=== PATIENT | male | born 1960 | race Caucasian/White ===

== ENCOUNTER 2021-12-16 09:10 | Inpatient (IN) | payer OTHER, SELFPAY ==
[2021-12-16 09:48] LABS: #Basophils 0.1 10x3/uL (0.0-0.2); #Monocytes 0.5 10x3/uL (0.0-1.1); #Neutrophils 3.6 10x3/uL (1.5-8.4); %Basophils 1.2 % (0.0-2.0); %Eosinophils 0.6 % (0.0-6.0); %Lymphocytes 13.7 % (18.0-47.0); %Monocytes 9.5 % (0.0-10.0); %Neutrophils 74.6 % (40.0-75.0); Hemoglobin 8.5 g/dL (13.5-17.5); Mean Corpuscular HGB CONC 34.3 g/dL (32.0-36.0); Mean Corpuscular Hemoglobin 30.4 pg (27.0-33.0); Mean Corpuscular Volume 88.6 fl (81.2-95.1); Mean Platelet Volume 8.4 fl (7.4-10.4); Platelet Count 136 10x3/uL (150-450); RBC Distribution Width 15.9 % (11.5-14.5); White Blood Cell (WBC) Count 4.8 10x3/uL (3.5-10.5)
[2021-12-16 09:59] LABS: PTT 27.4 sec (22.0-33.0); Prothrombin Time 10.9 sec (9.5-12.1)
[2021-12-16 10:04] LABS: Acetaminophen Less than 10.0 mcg/mL (10.0-30.0); Alcohol Less than 10 mg/dL (Less than 10); Salicylate Less than 8.0 mg/dL (15.0-30.0)
[2021-12-16 10:05] LABS: ALT (SGPT) 10 U/L (8-55); AST (SGOT) 22 U/L (5-34); Albumin 2.9 g/dL (3.5-5.0); Alkaline Phosphatase 102 U/L (40-110); Anion Gap 15 mmol/L (10-20); BUN (Urea Nitrogen) 27 mg/dL (8.4-25.7); Bilirubin, Total 1.5 mg/dL (0.2-1.2); CK (CPK) 14 U/L (30-200); Calc. Creatinine Clearance 0 mL/min (70-130); Calcium 8.7 mg/dL (7.8-10.44); Carbon Dioxide 26 mmol/L (22-29); Chloride 94 mmol/L (98-107); Globulin 3.9 g/dL (2.4-3.5); Glucose 127 mg/dL (70-105); Lipase 57 U/L (8-78); Potassium 3.9 mmol/L (3.5-5.1); Protein, Total 6.8 g/dL (6.0-8.3); Sodium 131 mmol/L (136-145)
[2021-12-16 11:24] LABS: Bilirubin Neg (Negative); Blood, Urine 10 (Negative); Clarity Clear (Clear); Glucose, Urine (Dipstick) Normal (Negative); Ketone, Urine Negative (Negative); Leukocyte Negative (Negative); Nitrite Negative (Negative); Protein, Urine (Dipstick) Negative (Neg-Trace)
[2021-12-16 11:31] LABS: Amphetamine Not Detected (NotDetected); Barbiturates Screen Not Detected (NotDetected); Benzodiazepine Screen Detected (NotDetected); Cocaine Metabolite Screen Not Detected (NotDetected); Methadone Not Detected (NotDetected); Methamphetamine Not Detected (NotDetected); Opiate Screen Not Detected (NotDetected); Oxycodone Screen Not Detected (NotDetected); Phencyclidine (PCP) Not Detected (NotDetected); THC/Cannabinoid Screen Not Detected (NotDetected); Tricyclic Screen Not Detected (NotDetected)
[2021-12-16 11:32] LABS: Bacteria/HPF Rare-Few HPF (None Seen); RBC/HPF 0-3 HPF (0-3); Renal Epithelial 0-3 HPF (None Seen); Transitional Epithelial 0-3 HPF (None Seen); WBC/HPF None Seen HPF (0-3)
[2021-12-16 12:26] LABS: Anion Gap 13 mmol/L (10-20); BUN (Urea Nitrogen) 27 mg/dL (8.4-25.7); Calc. Creatinine Clearance 0 mL/min (70-130); Calcium 8.4 mg/dL (7.8-10.44); Carbon Dioxide 26 mmol/L (22-29); Chloride 97 mmol/L (98-107); Glucose 125 mg/dL (70-105); Potassium 3.9 mmol/L (3.5-5.1); Sodium 132 mmol/L (136-145)
[2021-12-16] MEDS ORDERED: Ondansetron PF 4 MG/2 ML Vial IVP PRN (15:41)
[2021-12-16] MEDS ORDERED: Ondansetron ODT 4 MG TAB PO PRN ×2 (15:41→16:01)
[2021-12-16] MEDS ORDERED: Albumin 25% 25 GM/100 ML BOT IVPB SCH (15:45)
[2021-12-16] MEDS ORDERED: Thiamine 100 MG TAB PO SCH (15:45)
[2021-12-16] MEDS ORDERED: Lorazepam 1 MG TAB PO PRN (16:01)
[2021-12-16] MEDS ORDERED: Lorazepam 2 MG/ML VIAL IM PRN (16:01)
[2021-12-16] MEDS ORDERED: Electrolyte Replacement Protocol 1 EACH FS SCH (16:15)
[2021-12-16] MEDS ORDERED: Potassium Chloride 20 MEQ TAB PO SCH (18:00)
[2021-12-16] MEDS ORDERED: Multivit, Therapeutic 1 TAB PO SCH (18:00)
[2021-12-16] MEDS: Albumin 25% 25 GM/100 ML BOT IVPB SCH (20:00)
[2021-12-16] MEDS: Multivit, Therapeutic 1 TAB PO SCH (20:00)
[2021-12-16] MEDS: Thiamine HCl 200 MG/2 ML VIAL SLOW IVP SCH (20:01)
[2021-12-16] MEDS: Lorazepam 1 MG TAB PO SCH ×2 (20:02→22:00)
[2021-12-16 23:28] VITALS: BMI 23.6
[2021-12-17] MEDS: Albumin 25% 25 GM/100 ML BOT IVPB SCH ×2 (00:11→05:36)
[2021-12-17] MEDS: Lorazepam 1 MG TAB PO SCH ×3 (04:15→17:52)
[2021-12-17 05:31] LABS: #Eosinphils 0.1 10x3/uL (0.0-0.5); #Monocytes 0.4 10x3/uL (0.0-1.1); %Basophils 1.1 % (0.0-2.0); %Eosinophils 2.1 % (0.0-6.0); %Lymphocytes 20.8 % (18.0-47.0); Hemoglobin 7.8 g/dL (13.5-17.5); Mean Corpuscular HGB CONC 33.6 g/dL (32.0-36.0); Mean Corpuscular Hemoglobin 30.2 pg (27.0-33.0); Mean Corpuscular Volume 89.9 fl (81.2-95.1); Mean Platelet Volume 8.5 fl (7.4-10.4); Platelet Count 127 10x3/uL (150-450); Red Blood Cell (RBC) Count 2.58 10x6/uL (4.32-5.72); White Blood Cell (WBC) Count 3.8 10x3/uL (3.5-10.5)
[2021-12-17] MEDS: Levothyroxine Sodium 100 MCG TAB PO SCH (05:36)
[2021-12-17 05:46] LABS: #Neutrophils 2.3 10x3/uL (1.5-8.4); %Neutrophils 61.3 % (40.0-75.0)
[2021-12-17 05:52] LABS: Anion Gap 15 mmol/L (10-20); BUN (Urea Nitrogen) 23 mg/dL (8.4-25.7); Calc. Creatinine Clearance 49 mL/min (70-130); Carbon Dioxide 23 mmol/L (22-29); Chloride 99 mmol/L (98-107); Potassium 4.4 mmol/L (3.5-5.1); Sodium 133 mmol/L (136-145)
[2021-12-17 05:53] LABS: ALT (SGPT) 8 U/L (8-55); AST (SGOT) 17 U/L (5-34); Albumin 3.2 g/dL (3.5-5.0); Alkaline Phosphatase 89 U/L (40-110); Bilirubin, Total 1.3 mg/dL (0.2-1.2); Calcium 8.7 mg/dL (7.8-10.44); Globulin 3.3 g/dL (2.4-3.5); Glucose 114 mg/dL (70-105); Magnesium 2.2 mg/dL (1.6-2.6); Protein, Total 6.5 g/dL (6.0-8.3)
[2021-12-17] MEDS ORDERED: Folic Acid 1 MG TAB PO SCH (09:00)
[2021-12-17] MEDS: Spironolactone 25 MG TAB PO SCH (10:18)
[2021-12-17] MEDS: Ferrous Sulfate 325 MG TAB PO SCH (10:18)
[2021-12-17] MEDS: Multivit, Therapeutic 1 TAB PO SCH (10:18)
[2021-12-17] MEDS: Folic Acid 1 MG TAB PO SCH (10:19)
[2021-12-17 14:43] LABS: ALT (SGPT) 8 U/L (8-55); AST (SGOT) 17 U/L (5-34); Albumin 3.2 g/dL (3.5-5.0); Alkaline Phosphatase 84 U/L (40-110); Anion Gap 15 mmol/L (10-20); BUN (Urea Nitrogen) 20 mg/dL (8.4-25.7); Bilirubin, Total 1.4 mg/dL (0.2-1.2); Calc. Creatinine Clearance 55 mL/min (70-130); Calcium 8.5 mg/dL (7.8-10.44); Carbon Dioxide 23 mmol/L (22-29); Chloride 100 mmol/L (98-107); Globulin 3.1 g/dL (2.4-3.5); Glucose 125 mg/dL (70-105); Potassium 4.2 mmol/L (3.5-5.1); Protein, Total 6.3 g/dL (6.0-8.3); Sodium 134 mmol/L (136-145)
[2021-12-17] MEDS ORDERED: Lorazepam 1 MG TAB PO PRN (16:01)
[2021-12-17] MEDS: Thiamine HCl 200 MG/2 ML VIAL SLOW IVP SCH (18:06)
[2021-12-18] MEDS: Lorazepam 1 MG TAB PO SCH ×3 (00:55→10:52)
[2021-12-18 03:58] LABS: ALT (SGPT) 7 U/L (8-55); AST (SGOT) 16 U/L (5-34); Alkaline Phosphatase 84 U/L (40-110); Anion Gap 15 mmol/L (10-20); BUN (Urea Nitrogen) 18 mg/dL (8.4-25.7); Bilirubin, Total 1.7 mg/dL (0.2-1.2); Calc. Creatinine Clearance 61 mL/min (70-130); Calcium 8.5 mg/dL (7.8-10.44); Carbon Dioxide 23 mmol/L (22-29); Chloride 100 mmol/L (98-107); Globulin 3.1 g/dL (2.4-3.5); Glucose 108 mg/dL (70-105); Protein, Total 6.1 g/dL (6.0-8.3); Sodium 134 mmol/L (136-145)
[2021-12-18 04:05] LABS: #Basophils 0.1 10x3/uL (0.0-0.2); #Eosinphils 0.1 10x3/uL (0.0-0.5); #Monocytes 0.5 10x3/uL (0.0-1.1); #Neutrophils 3.2 10x3/uL (1.5-8.4); %Basophils 1.3 % (0.0-2.0); %Eosinophils 1.5 % (0.0-6.0); %Monocytes 10.8 % (0.0-10.0); Hemoglobin 7.6 g/dL (13.5-17.5); Mean Corpuscular Hemoglobin 30.3 pg (27.0-33.0); Mean Corpuscular Volume 91.6 fl (81.2-95.1); Mean Platelet Volume 8.8 fl (7.4-10.4); Platelet Count 115 10x3/uL (150-450); RBC Distribution Width 16.1 % (11.5-14.5); Red Blood Cell (RBC) Count 2.51 10x6/uL (4.32-5.72); White Blood Cell (WBC) Count 4.7 10x3/uL (3.5-10.5)
[2021-12-18] MEDS: Levothyroxine Sodium 100 MCG TAB PO SCH (06:28)
[2021-12-18] MEDS: Spironolactone 25 MG TAB PO SCH (10:00)
[2021-12-18] MEDS: Multivit, Therapeutic 1 TAB PO SCH (10:01)
[2021-12-18] MEDS: Folic Acid 1 MG TAB PO SCH (10:01)
[2021-12-18] MEDS: Ferrous Sulfate 325 MG TAB PO SCH (10:01)
[2021-12-18] MEDS ORDERED: Thiamine HCl 500 MG, Admixture Fee 1 EACH in Sodium Chloride 0.9% 50 ML IVPB SCH (15:00)
[2021-12-18] MEDS: Thiamine HCl 500 MG, Admixture Fee 1 EACH in Sodium Chloride 0.9% 50 ML IVPB SCH ×2 (15:52→21:13)
[2021-12-18] MEDS ORDERED: Lorazepam 1 MG TAB PO PRN (16:01)
[2021-12-18] MEDS ORDERED: Lorazepam 0.5 MG TAB PO SCH (16:15)
[2021-12-19 04:56] LABS: ALT (SGPT) 7 U/L (8-55); AST (SGOT) 16 U/L (5-34); Albumin 2.9 g/dL (3.5-5.0); Alkaline Phosphatase 86 U/L (40-110); Anion Gap 14 mmol/L (10-20); BUN (Urea Nitrogen) 17 mg/dL (8.4-25.7); Bilirubin, Total 1.5 mg/dL (0.2-1.2); Calc. Creatinine Clearance 62 mL/min (70-130); Calcium 8.5 mg/dL (7.8-10.44); Carbon Dioxide 22 mmol/L (22-29); Chloride 103 mmol/L (98-107); Globulin 3.1 g/dL (2.4-3.5); Glucose 89 mg/dL (70-105); Potassium 3.9 mmol/L (3.5-5.1); Sodium 135 mmol/L (136-145)
[2021-12-19 05:01] LABS: #Basophils 0.1 10x3/uL (0.0-0.2); #Eosinphils 0.2 10x3/uL (0.0-0.5); #Monocytes 0.4 10x3/uL (0.0-1.1); #Neutrophils 2.6 10x3/uL (1.5-8.4); %Basophils 1.4 % (0.0-2.0); %Eosinophils 5.2 % (0.0-6.0); %Lymphocytes 22.6 % (18.0-47.0); %Monocytes 9.9 % (0.0-10.0); %Neutrophils 60.7 % (40.0-75.0); Hemoglobin 8.3 g/dL (13.5-17.5); Mean Corpuscular HGB CONC 33.1 g/dL (32.0-36.0); Mean Corpuscular Volume 90.6 fl (81.2-95.1); Mean Platelet Volume 8.8 fl (7.4-10.4); Platelet Count 133 10x3/uL (150-450); Red Blood Cell (RBC) Count 2.77 10x6/uL (4.32-5.72); White Blood Cell (WBC) Count 4.2 10x3/uL (3.5-10.5)
[2021-12-19] MEDS: Levothyroxine Sodium 100 MCG TAB PO SCH (06:15)
[2021-12-19] MEDS: Folic Acid 1 MG TAB PO SCH (09:47)
[2021-12-19] MEDS: Multivit, Therapeutic 1 TAB PO SCH (09:47)
[2021-12-19] MEDS: Ferrous Sulfate 325 MG TAB PO SCH (09:48)
[2021-12-19] MEDS: Spironolactone 25 MG TAB PO SCH (09:49)
[2021-12-19] MEDS: Thiamine HCl 500 MG, Admixture Fee 1 EACH in Sodium Chloride 0.9% 50 ML IVPB SCH ×3 (09:51→20:54)
[2021-12-19] MEDS: Lactated Ringer's 1,000 ML IV SCH (15:16)
[2021-12-19] MEDS ORDERED: Lorazepam 0.5 MG TAB PO PRN (16:01)
[2021-12-19] MEDS: chlordiazePOXIDE HCl 25 MG CAP PO SCH (23:53)
[2021-12-20] MEDS: Lactated Ringer's 1,000 ML IV SCH (02:00)
[2021-12-20 05:25] LABS: #Basophils 0.1 10x3/uL (0.0-0.2); #Eosinphils 0.2 10x3/uL (0.0-0.5); #Monocytes 0.5 10x3/uL (0.0-1.1); #Neutrophils 2.4 10x3/uL (1.5-8.4); %Basophils 1.2 % (0.0-2.0); %Eosinophils 5.9 % (0.0-6.0); %Lymphocytes 23.3 % (18.0-47.0); %Monocytes 11.1 % (0.0-10.0); %Neutrophils 58.3 % (40.0-75.0); Hemoglobin 7.5 g/dL (13.5-17.5); Mean Corpuscular HGB CONC 32.6 g/dL (32.0-36.0); Mean Corpuscular Hemoglobin 29.8 pg (27.0-33.0); Mean Corpuscular Volume 91.3 fl (81.2-95.1); Mean Platelet Volume 8.7 fl (7.4-10.4); Platelet Count 133 10x3/uL (150-450); Red Blood Cell (RBC) Count 2.52 10x6/uL (4.32-5.72); White Blood Cell (WBC) Count 4.1 10x3/uL (3.5-10.5)
[2021-12-20 05:49] LABS: ALT (SGPT) 9 U/L (8-55); AST (SGOT) 16 U/L (5-34); Albumin 2.8 g/dL (3.5-5.0); Alkaline Phosphatase 85 U/L (40-110); Anion Gap 12 mmol/L (10-20); BUN (Urea Nitrogen) 15 mg/dL (8.4-25.7); Bilirubin, Total 1.3 mg/dL (0.2-1.2); Calc. Creatinine Clearance 65 mL/min (70-130); Calcium 8.3 mg/dL (7.8-10.44); Carbon Dioxide 21 mmol/L (22-29); Chloride 103 mmol/L (98-107); Globulin 3.1 g/dL (2.4-3.5); Glucose 100 mg/dL (70-105); Potassium 4.1 mmol/L (3.5-5.1); Protein, Total 5.9 g/dL (6.0-8.3); Sodium 132 mmol/L (136-145)
[2021-12-20] MEDS: chlordiazePOXIDE HCl 25 MG CAP PO SCH ×3 (06:30→18:03)
[2021-12-20] MEDS: Levothyroxine Sodium 100 MCG TAB PO SCH (06:30)
[2021-12-20] MEDS: Multivit, Therapeutic 1 TAB PO SCH (08:53)
[2021-12-20] MEDS: Folic Acid 1 MG TAB PO SCH (08:53)
[2021-12-20] MEDS: Spironolactone 25 MG TAB PO SCH (08:53)
[2021-12-20] MEDS: Thiamine HCl 500 MG, Admixture Fee 1 EACH in Sodium Chloride 0.9% 50 ML IVPB SCH ×3 (08:53→20:14)
[2021-12-20] MEDS: Ferrous Sulfate 325 MG TAB PO SCH (08:53)
[2021-12-20] MEDS ORDERED: Lorazepam 2 MG/ML VIAL SLOW IVP SCH (21:45)
[2021-12-20] MEDS ORDERED: Ziprasidone 20 MG VIAL IM SCH (23:15)
[2021-12-21] MEDS ORDERED: Sterile Water 10 ML ONE (00:31)
[2021-12-21] MEDS: chlordiazePOXIDE HCl 25 MG CAP PO SCH ×4 (00:50→21:15)
[2021-12-21 05:40] LABS: #Eosinphils 0.1 10x3/uL (0.0-0.5); #Monocytes 0.5 10x3/uL (0.0-1.1); #Neutrophils 3.1 10x3/uL (1.5-8.4); %Basophils 0.7 % (0.0-2.0); %Eosinophils 2.7 % (0.0-6.0); %Lymphocytes 17.2 % (18.0-47.0); %Monocytes 10.5 % (0.0-10.0); %Neutrophils 68.7 % (40.0-75.0); Hemoglobin 7.9 g/dL (13.5-17.5); Mean Corpuscular HGB CONC 32.6 g/dL (32.0-36.0); Mean Corpuscular Hemoglobin 30.2 pg (27.0-33.0); Mean Corpuscular Volume 92.4 fl (81.2-95.1); Mean Platelet Volume 8.7 fl (7.4-10.4); Platelet Count 141 10x3/uL (150-450); RBC Distribution Width 15.9 % (11.5-14.5); Red Blood Cell (RBC) Count 2.62 10x6/uL (4.32-5.72); White Blood Cell (WBC) Count 4.5 10x3/uL (3.5-10.5)
[2021-12-21 05:51] LABS: ALT (SGPT) 11 U/L (8-55); AST (SGOT) 27 U/L (5-34); Albumin 2.8 g/dL (3.5-5.0); Alkaline Phosphatase 84 U/L (40-110); Anion Gap 14 mmol/L (10-20); BUN (Urea Nitrogen) 12 mg/dL (8.4-25.7); Bilirubin, Total 1.5 mg/dL (0.2-1.2); Calc. Creatinine Clearance 78 mL/min (70-130); Calcium 8.4 mg/dL (7.8-10.44); Carbon Dioxide 20 mmol/L (22-29); Chloride 105 mmol/L (98-107); Globulin 3.5 g/dL (2.4-3.5); Glucose 106 mg/dL (70-105); Potassium 4.4 mmol/L (3.5-5.1); Protein, Total 6.3 g/dL (6.0-8.3); Sodium 135 mmol/L (136-145)
[2021-12-21] MEDS: Ferrous Sulfate 325 MG TAB PO SCH (09:11)
[2021-12-21] MEDS: Levothyroxine Sodium 100 MCG TAB PO SCH (09:11)
[2021-12-21] MEDS: Multivit, Therapeutic 1 TAB PO SCH (09:11)
[2021-12-21] MEDS: Thiamine HCl 500 MG, Admixture Fee 1 EACH in Sodium Chloride 0.9% 50 ML IVPB SCH ×3 (09:11→21:15)
[2021-12-21] MEDS: Folic Acid 1 MG TAB PO SCH (09:11)
[2021-12-21] MEDS: Spironolactone 25 MG TAB PO SCH (09:11)
[2021-12-22] MEDS: chlordiazePOXIDE HCl 25 MG CAP PO SCH ×4 (01:29→16:48)
[2021-12-22 04:19] LABS: #Basophils 0.1 10x3/uL (0.0-0.2); #Eosinphils 0.3 10x3/uL (0.0-0.5); #Monocytes 0.6 10x3/uL (0.0-1.1); #Neutrophils 3.7 10x3/uL (1.5-8.4); %Basophils 1.5 % (0.0-2.0); %Eosinophils 4.9 % (0.0-6.0); %Lymphocytes 15.1 % (18.0-47.0); %Monocytes 11.1 % (0.0-10.0); %Neutrophils 67.2 % (40.0-75.0); Hemoglobin 8.1 g/dL (13.5-17.5); Mean Corpuscular HGB CONC 32.5 g/dL (32.0-36.0); Mean Corpuscular Hemoglobin 29.8 pg (27.0-33.0); Mean Corpuscular Volume 91.5 fl (81.2-95.1); Platelet Count 177 10x3/uL (150-450); Red Blood Cell (RBC) Count 2.72 10x6/uL (4.32-5.72); White Blood Cell (WBC) Count 5.5 10x3/uL (3.5-10.5)
[2021-12-22 04:27] LABS: Anion Gap 13 mmol/L (10-20); BUN (Urea Nitrogen) 12 mg/dL (8.4-25.7); Calc. Creatinine Clearance 75 mL/min (70-130); Calcium 8.3 mg/dL (7.8-10.44); Carbon Dioxide 20 mmol/L (22-29); Chloride 104 mmol/L (98-107); Glucose 106 mg/dL (70-105); Potassium 4.2 mmol/L (3.5-5.1); Sodium 133 mmol/L (136-145)
[2021-12-22] MEDS: Levothyroxine Sodium 100 MCG TAB PO SCH (06:21)
[2021-12-22] MEDS: Spironolactone 25 MG TAB PO SCH (07:48)
[2021-12-22] MEDS: Ferrous Sulfate 325 MG TAB PO SCH (07:48)
[2021-12-22] MEDS: Folic Acid 1 MG TAB PO SCH (07:49)
[2021-12-22] MEDS: Multivit, Therapeutic 1 TAB PO SCH (07:49)
[2021-12-22] MEDS: Thiamine HCl 500 MG, Admixture Fee 1 EACH in Sodium Chloride 0.9% 50 ML IVPB SCH ×3 (08:49→20:44)
[2021-12-22] MEDS: Pantoprazole 40 MG VIAL IVP SCH (20:43)
[2021-12-23] MEDS: chlordiazePOXIDE HCl 25 MG CAP PO SCH ×4 (01:15→18:28)
[2021-12-23] MEDS ORDERED: Lorazepam 2 MG/ML VIAL SLOW IVP SCH (02:00)
[2021-12-23 05:33] LABS: #Basophils 0.1 10x3/uL (0.0-0.2); #Eosinphils 0.2 10x3/uL (0.0-0.5); #Monocytes 0.7 10x3/uL (0.0-1.1); %Basophils 1.1 % (0.0-2.0); %Eosinophils 2.5 % (0.0-6.0); %Lymphocytes 11.4 % (18.0-47.0); %Monocytes 9.1 % (0.0-10.0); %Neutrophils 75.5 % (40.0-75.0); Hemoglobin 9.1 g/dL (13.5-17.5); Mean Corpuscular Volume 93.7 fl (81.2-95.1); Mean Platelet Volume 8.9 fl (7.4-10.4); Platelet Count 199 10x3/uL (150-450); RBC Distribution Width 16.1 % (11.5-14.5); Red Blood Cell (RBC) Count 3.03 10x6/uL (4.32-5.72); White Blood Cell (WBC) Count 7.9 10x3/uL (3.5-10.5)
[2021-12-23 05:50] LABS: Anion Gap 14 mmol/L (10-20); BUN (Urea Nitrogen) 12 mg/dL (8.4-25.7); Calc. Creatinine Clearance 64 mL/min (70-130); Calcium 8.6 mg/dL (7.8-10.44); Carbon Dioxide 19 mmol/L (22-29); Chloride 108 mmol/L (98-107); Glucose 108 mg/dL (70-105); Potassium 4.2 mmol/L (3.5-5.1); Sodium 137 mmol/L (136-145)
[2021-12-23] MEDS: Levothyroxine Sodium 100 MCG TAB PO SCH (05:52)
[2021-12-23] MEDS: Pantoprazole 40 MG VIAL IVP SCH ×2 (09:41→20:34)
[2021-12-23] MEDS ORDERED: Haloperidol Lactate 5 MG/ML VIAL SLOW IVP SCH (10:30)
[2021-12-23] MEDS: Folic Acid 1 MG TAB PO SCH (11:50)
[2021-12-23] MEDS: Multivit, Therapeutic 1 TAB PO SCH (11:50)
[2021-12-23] MEDS: Spironolactone 25 MG TAB PO SCH (11:50)
[2021-12-23] MEDS: Ferrous Sulfate 325 MG TAB PO SCH (11:50)
[2021-12-23] MEDS: Thiamine HCl 500 MG, Admixture Fee 1 EACH in Sodium Chloride 0.9% 50 ML IVPB SCH ×2 (12:13→16:41)
[2021-12-23] MEDS ORDERED: Lactated Ringer's 1,000 ML IV SCH (19:15)
[2021-12-23] MEDS: Rifaximin 550 MG TAB PER TUBE SCH (21:38)
[2021-12-24 05:33] LABS: Hemoglobin 8.6 g/dL (13.5-17.5); Mean Corpuscular HGB CONC 32.1 g/dL (32.0-36.0); Mean Corpuscular Volume 93.4 fl (81.2-95.1); Mean Platelet Volume 9.2 fl (7.4-10.4); Platelet Count 178 10x3/uL (150-450); RBC Distribution Width 16.2 % (11.5-14.5); Red Blood Cell (RBC) Count 2.87 10x6/uL (4.32-5.72); White Blood Cell (WBC) Count 5.6 10x3/uL (3.5-10.5)
[2021-12-24 05:53] LABS: Anion Gap 13 mmol/L (10-20); BUN (Urea Nitrogen) 12 mg/dL (8.4-25.7); Calc. Creatinine Clearance 74 mL/min (70-130); Calcium 8.3 mg/dL (7.8-10.44); Carbon Dioxide 21 mmol/L (22-29); Chloride 108 mmol/L (98-107); Glucose 123 mg/dL (70-105); Sodium 138 mmol/L (136-145)
[2021-12-24] MEDS: Levothyroxine Sodium 100 MCG TAB PO SCH (06:22)
[2021-12-24 06:23] LABS: MDiff Complete? YES
[2021-12-24 06:27] LABS: Band 4 % (5-11); Eosinophils 5 % (0-10); Lymphocytes 20 % (21-51); Monocytes 11 % (0-10); Neutrophil 60 % (42-75)
[2021-12-24] MEDS ORDERED: Thiamine 100 MG TAB PO SCH (09:00)
[2021-12-24] MEDS: Pantoprazole 40 MG VIAL IVP SCH ×2 (09:31→20:50)
[2021-12-24] MEDS: Multivit, Therapeutic 1 TAB PO SCH (09:31)
[2021-12-24] MEDS: Folic Acid 1 MG TAB PO SCH (09:31)
[2021-12-24] MEDS: Rifaximin 550 MG TAB PER TUBE SCH ×2 (09:31→20:50)
[2021-12-24] MEDS: Spironolactone 25 MG TAB PO SCH (09:31)
[2021-12-24] MEDS: Ferrous Sulfate 325 MG TAB PO SCH (09:31)
[2021-12-24] MEDS ORDERED: Haloperidol Lactate 5 MG/ML VIAL SLOW IVP SCH (14:30)
[2021-12-25] MEDS: Levothyroxine Sodium 100 MCG TAB PO SCH (05:18)
[2021-12-25 06:44] LABS: Hemoglobin 8.1 g/dL (13.5-17.5); Mean Corpuscular HGB CONC 33.6 g/dL (32.0-36.0); Mean Corpuscular Hemoglobin 30.6 pg (27.0-33.0); Mean Corpuscular Volume 90.9 fl (81.2-95.1); Mean Platelet Volume 9.2 fl (7.4-10.4); Platelet Count 162 10x3/uL (150-450); RBC Distribution Width 16.4 % (11.5-14.5); Red Blood Cell (RBC) Count 2.65 10x6/uL (4.32-5.72); White Blood Cell (WBC) Count 3.5 10x3/uL (3.5-10.5)
[2021-12-25 06:56] LABS: Anion Gap 12 mmol/L (10-20); BUN (Urea Nitrogen) 12 mg/dL (8.4-25.7); Calc. Creatinine Clearance 93 mL/min (70-130); Carbon Dioxide 19 mmol/L (22-29); Chloride 110 mmol/L (98-107); Glucose 132 mg/dL (70-105); Iron Binding Capacity, Total 179 mcg/dL (261-462); Phosphorus 3.6 mg/dL (2.3-4.7); Potassium 3.8 mmol/L (3.5-5.1); Sodium 137 mmol/L (136-145)
[2021-12-25 07:14] LABS: Ferritin 71.31 ng/mL (22-322)
[2021-12-25 07:22] LABS: MDiff Complete? YES
[2021-12-25 07:26] LABS: Anisocytosis SLIGHT = 6-15 cells (100X) (0-5/hpf); Band 1 % (5-11); Eosinophils 2 % (0-10); Lymphocytes 29 % (21-51); Monocytes 7 % (0-10); Neutrophil 59 % (42-75); Platelet Morphology Comment Appears Adequate
[2021-12-25] MEDS ORDERED: Thiamine HCl 200 MG/2 ML VIAL ONE (08:23)
[2021-12-25] MEDS ORDERED: Magnesium 2 GM/50 ML(in water) 2 GM in Premix Bag 1 BAG IVPB SCH (09:00)
[2021-12-25] MEDS: Spironolactone 25 MG TAB PO SCH (10:19)
[2021-12-25] MEDS: Ferrous Sulfate 325 MG TAB PO SCH (10:19)
[2021-12-25] MEDS: Multivit, Therapeutic 1 TAB PO SCH (10:20)
[2021-12-25] MEDS: Pantoprazole 40 MG VIAL IVP SCH ×2 (10:20→21:34)
[2021-12-25] MEDS: Folic Acid 1 MG TAB PO SCH (10:20)
[2021-12-25] MEDS: Rifaximin 550 MG TAB PER TUBE SCH ×2 (10:20→21:34)
[2021-12-25 12:23] LABS: Hep C IgG Ab NonReactive (NonReactive); Hep C Index 0.14 S/CO (0-0.79)
[2021-12-25 12:24] LABS: HBCM Index 0.18 S/CO (0-0.79); Hep A IgM AB NonReactive (NonReactive); Hep A IgM S/CO 0.31 S/CO (0-0.79); Hepatitis B Core IgM Abs NonReactive (NonReactive)
[2021-12-25 12:27] LABS: Hep B Surf AB NonReactive (NonReactive)
[2021-12-25 12:28] LABS: HBSAB Concentration 0.09 mIU/mL
[2021-12-25 13:04] LABS: HBSAg Index 0.33 S/CO (0-0.99); Hep B Surf Ag Non-Reactive S/CO (NonReactive)
[2021-12-25] MEDS: Albumin 25% 25 GM/100 ML BOT IVPB SCH ×2 (15:06→21:33)
[2021-12-26 05:16] LABS: #Eosinphils 0.1 10x3/uL (0.0-0.5); #Monocytes 0.5 10x3/uL (0.0-1.1); #Neutrophils 2.8 10x3/uL (1.5-8.4); %Lymphocytes 13.1 % (18.0-47.0); %Monocytes 12.6 % (0.0-10.0); %Neutrophils 69.8 % (40.0-75.0); Hemoglobin 7.7 g/dL (13.5-17.5); Mean Corpuscular Hemoglobin 29.7 pg (27.0-33.0); Mean Corpuscular Volume 93.1 fl (81.2-95.1); Platelet Count 164 10x3/uL (150-450); RBC Distribution Width 16.2 % (11.5-14.5); Red Blood Cell (RBC) Count 2.59 10x6/uL (4.32-5.72)
[2021-12-26 05:43] LABS: Anion Gap 12 mmol/L (10-20); BUN (Urea Nitrogen) 12 mg/dL (8.4-25.7); Calc. Creatinine Clearance 97 mL/min (70-130); Calcium 8.5 mg/dL (7.8-10.44); Carbon Dioxide 20 mmol/L (22-29); Chloride 110 mmol/L (98-107); Glucose 133 mg/dL (70-105); Magnesium 2.2 mg/dL (1.6-2.6); Sodium 138 mmol/L (136-145)
[2021-12-26] MEDS: Levothyroxine Sodium 100 MCG TAB PO SCH (06:41)
[2021-12-26] MEDS: Albumin 25% 25 GM/100 ML BOT IVPB SCH ×2 (08:14→14:18)
[2021-12-26] MEDS: Pantoprazole 40 MG VIAL IVP SCH ×2 (08:25→22:09)
[2021-12-26] MEDS: Multivit, Therapeutic 1 TAB PO SCH (08:26)
[2021-12-26] MEDS: Folic Acid 1 MG TAB PO SCH (08:26)
[2021-12-26] MEDS: Rifaximin 550 MG TAB PER TUBE SCH ×2 (08:26→22:09)
[2021-12-26] MEDS: Ferrous Sulfate 325 MG TAB PO SCH (08:26)
[2021-12-26] MEDS: Spironolactone 25 MG TAB PO SCH (08:26)
[2021-12-26] MEDS: Thiamine HCl 250 MG, Admixture Fee 1 EACH in Sodium Chloride 0.9% 50 ML IVPB SCH (08:28)
[2021-12-27 05:35] LABS: Hemoglobin 8.5 g/dL (13.5-17.5); Mean Corpuscular HGB CONC 32.4 g/dL (32.0-36.0); Mean Corpuscular Hemoglobin 29.8 pg (27.0-33.0); Mean Corpuscular Volume 91.9 fl (81.2-95.1); Mean Platelet Volume 9.4 fl (7.4-10.4); Platelet Count 172 10x3/uL (150-450); RBC Distribution Width 16.3 % (11.5-14.5); Red Blood Cell (RBC) Count 2.85 10x6/uL (4.32-5.72); White Blood Cell (WBC) Count 3.9 10x3/uL (3.5-10.5)
[2021-12-27 05:45] LABS: INR-International Normal Ratio 1.1; PTT 32.9 sec (22.0-33.0); Prothrombin Time 11.8 sec (9.5-12.1)
[2021-12-27 05:52] LABS: ALT (SGPT) 8 U/L (8-55); AST (SGOT) 19 U/L (5-34); Albumin 3.5 g/dL (3.5-5.0); Alkaline Phosphatase 88 U/L (40-110); Anion Gap 12 mmol/L (10-20); BUN (Urea Nitrogen) 10 mg/dL (8.4-25.7); Bilirubin, Total 1.3 mg/dL (0.2-1.2); Calc. Creatinine Clearance 106 mL/min (70-130); Calcium 8.6 mg/dL (7.8-10.44); Carbon Dioxide 22 mmol/L (22-29); Chloride 109 mmol/L (98-107); Globulin 3.3 g/dL (2.4-3.5); Glucose 98 mg/dL (70-105); Potassium 4.3 mmol/L (3.5-5.1); Protein, Total 6.8 g/dL (6.0-8.3); Sodium 139 mmol/L (136-145)
[2021-12-27 05:59] LABS: MDiff Complete? YES
[2021-12-27] MEDS ORDERED: Thiamine 100 MG TAB PO SCH (06:00)
[2021-12-27 06:03] LABS: Band 2 % (5-11); Eosinophils 4 % (0-10); Lymphocytes 13 % (21-51); Monocytes 15 % (0-10); Neutrophil 65 % (42-75); Platelet Morphology Comment Appears Adequate
[2021-12-27 06:04] LABS: RBC Morphology Normal
[2021-12-27] MEDS: Levothyroxine Sodium 100 MCG TAB PO SCH (06:31)
[2021-12-27] MEDS: Thiamine HCl 250 MG, Admixture Fee 1 EACH in Sodium Chloride 0.9% 50 ML IVPB SCH (09:12)
[2021-12-27] MEDS: Folic Acid 1 MG TAB PO SCH (09:27)
[2021-12-27] MEDS: Pantoprazole 40 MG VIAL IVP SCH ×2 (09:27→22:56)
[2021-12-27] MEDS: Multivit, Therapeutic 1 TAB PO SCH (09:27)
[2021-12-27] MEDS: Ferrous Sulfate 325 MG TAB PO SCH (09:27)
[2021-12-27] MEDS: Rifaximin 550 MG TAB PER TUBE SCH ×2 (09:32→22:56)
[2021-12-27] MEDS: Spironolactone 25 MG TAB PO SCH (09:33)
[2021-12-27] MEDS ORDERED: Piperacillin/Tazobactam 3.375 GM in Sodium Chloride 0.9% 100 ML IVPB SCH (18:00)
[2021-12-27 19:31] LABS: Hemoglobin 8.6 g/dL (13.5-17.5); MDiff Complete? YES; Mean Corpuscular Hemoglobin 29.7 pg (27.0-33.0); Mean Corpuscular Volume 92.8 fl (81.2-95.1); Mean Platelet Volume 9.7 fl (7.4-10.4); Platelet Count 171 10x3/uL (150-450); RBC Distribution Width 15.9 % (11.5-14.5); White Blood Cell (WBC) Count 3.8 10x3/uL (3.5-10.5)
[2021-12-27 19:42] LABS: ALT (SGPT) 10 U/L (8-55); AST (SGOT) 25 U/L (5-34); Albumin 3.6 g/dL (3.5-5.0); Alkaline Phosphatase 94 U/L (40-110); Anion Gap 17 mmol/L (10-20); BUN (Urea Nitrogen) 11 mg/dL (8.4-25.7); Bilirubin, Total 1.7 mg/dL (0.2-1.2); Calc. Creatinine Clearance 95 mL/min (70-130); Calcium 9.2 mg/dL (7.8-10.44); Carbon Dioxide 19 mmol/L (22-29); Chloride 107 mmol/L (98-107); Globulin 3.5 g/dL (2.4-3.5); Glucose 100 mg/dL (70-105); Potassium 4.9 mmol/L (3.5-5.1); Protein, Total 7.1 g/dL (6.0-8.3); Sodium 138 mmol/L (136-145)
[2021-12-27 20:14] LABS: Band 14 % (5-11); Eosinophils 3 % (0-10); Lymphocytes 6 % (21-51); Metamyelocyte 1 % (0-0); Monocytes 10 % (0-10); Myelocyte 1 % (0-0); Neutrophil 64 % (42-75); Platelet Morphology Comment Appears Adequate
[2021-12-27 20:15] LABS: RBC Morphology Normal
[2021-12-27 20:34] LABS: Actual Bicarbonate (HCO3a) 21.6 mEq/L (22-28); Base Excess (BEa) -1.1 mEq/L (-2.0 to +3.0); CO2 Tension 28.8 mmHg (35.0-45.0); Calcium, Ionized (arterial) 1.18 mmol/L (1.12-1.30); Carboxyhemoglobin (COHb) 0.2 gm% (0.0-3.0); O2 Tension (PaO2), arterial 64.4 mmHg (> 80.0); Potassium - ABG Lab 4.7 mmol/L (3.70-5.30); Puncture Site LRA; pH, Arterial 7.49 (7.35-7.45)
[2021-12-27 21:38] LABS: Bilirubin Neg (Negative); Blood, Urine 250 (Negative); Clarity Clear (Clear); Glucose, Urine (Dipstick) Normal (Negative); Ketone, Urine 5 mg/dL (Negative); Leukocyte 25 (Negative); Nitrite Negative (Negative); Protein, Urine (Dipstick) 100 mg/dl (Neg-Trace)
[2021-12-27 21:40] LABS: Urine Culture Reflex No No
[2021-12-27 21:44] LABS: Bacteria/HPF Rare-Few HPF (None Seen); Squamous Epithelial 0-3 HPF (0-3)
[2021-12-27] MEDS: Piperacillin/Tazobactam 3.375 GM in Sodium Chloride 0.9% 100 ML IVPB SCH (22:56)
[2021-12-28] MEDS ORDERED: Haloperidol Lactate 5 MG/ML VIAL IM SCH (03:15)
[2021-12-28] MEDS: Acetaminophen 650 MG Suppository PR PRN ×2 (03:53→22:17)
[2021-12-28 05:40] LABS: Mean Corpuscular HGB CONC 32.9 g/dL (32.0-36.0); Mean Corpuscular Hemoglobin 30.2 pg (27.0-33.0); Mean Corpuscular Volume 91.7 fl (81.2-95.1); Mean Platelet Volume 9.6 fl (7.4-10.4); Platelet Count 127 10x3/uL (150-450); RBC Distribution Width 16.2 % (11.5-14.5); Red Blood Cell (RBC) Count 2.65 10x6/uL (4.32-5.72); White Blood Cell (WBC) Count 3.5 10x3/uL (3.5-10.5)
[2021-12-28 05:57] LABS: ALT (SGPT) 9 U/L (8-55); AST (SGOT) 29 U/L (5-34); Albumin 3.2 g/dL (3.5-5.0); Alkaline Phosphatase 93 U/L (40-110); Anion Gap 15 mmol/L (10-20); BUN (Urea Nitrogen) 14 mg/dL (8.4-25.7); Bilirubin, Total 1.4 mg/dL (0.2-1.2); Calc. Creatinine Clearance 71 mL/min (70-130); Calcium 8.4 mg/dL (7.8-10.44); Carbon Dioxide 21 mmol/L (22-29); Chloride 108 mmol/L (98-107); Globulin 3.2 g/dL (2.4-3.5); Glucose 108 mg/dL (70-105); Potassium 5.1 mmol/L (3.5-5.1); Protein, Total 6.4 g/dL (6.0-8.3); Sodium 139 mmol/L (136-145)
[2021-12-28 07:11] LABS: MDiff Complete? YES
[2021-12-28 07:15] LABS: Band 2 % (5-11); Eosinophils 1 % (0-10); Lymphocytes 13 % (21-51); Monocytes 24 % (0-10); Neutrophil 60 % (42-75)
[2021-12-28 07:17] LABS: Platelet Morphology Comment Appears Decreased; RBC Morphology Normal
[2021-12-28] MEDS: Piperacillin/Tazobactam 3.375 GM in Sodium Chloride 0.9% 100 ML IVPB SCH ×3 (08:37→22:23)
[2021-12-28] MEDS: Levothyroxine Sodium 100 MCG TAB PO SCH (08:38)
[2021-12-28] MEDS: Thiamine 100 MG TAB PO SCH ×3 (08:38→22:38)
[2021-12-28] MEDS: Pantoprazole 40 MG VIAL IVP SCH ×2 (10:34→22:20)
[2021-12-28] MEDS ORDERED: Lidocaine 1% PF 5 ML VIAL ONE (11:15)
[2021-12-28] MEDS ORDERED: Sodium Bicarbonate 2.5 MEQ/5 ML VIAL ONE (11:16)
[2021-12-28 12:38] LABS: ANA Symphony (Qualitative) Negative (Negative); ANA Symphony (Quantitative) 0.4 Ratio (< 0.7 Negative); EliA Vaculitis New Method **** NEW METHOD ****; Mitochondrial Ab 1.5 U/mL (<4 Negative); dsDNA IgG Antibody 5.3 IU/mL (<10 Negative)
[2021-12-28 14:08] LABS: BF Color Yellow; Body Fluid Source Ascites Body Fluid; Clarity Clear (Clear)
[2021-12-28 14:14] LABS: BF Segmented Neutrophils 12 %; Cell Count Non Hematic 64 %; Lymphocytes 24 %
[2021-12-28 14:19] LABS: Tube # EDTA
[2021-12-28] MEDS: Furosemide 40 MG TAB PO SCH (15:49)
[2021-12-28] MEDS: Ferrous Sulfate 325 MG TAB PO SCH (15:49)
[2021-12-28] MEDS: Rifaximin 550 MG TAB PER TUBE SCH ×2 (15:50→22:42)
[2021-12-28] MEDS: Folic Acid 1 MG TAB PO SCH (15:50)
[2021-12-28] MEDS: Multivit, Therapeutic 1 TAB PO SCH (15:50)
[2021-12-28] MEDS: Spironolactone 25 MG TAB PO SCH (15:53)
[2021-12-28] MEDS: Albumin 25% 25 GM/100 ML BOT IVPB SCH ×2 (18:03→22:27)
[2021-12-28 20:03] LABS: Fluid, Amylase 5 U/L (Not Available); Fluid, Glucose 110 mg/dL (Not Available); Fluid, LDH 71 U/L (Not Available)
[2021-12-29 04:06] LABS: Hemoglobin 7.4 g/dL (13.5-17.5); Mean Corpuscular HGB CONC 33.2 g/dL (32.0-36.0); Mean Corpuscular Hemoglobin 30.2 pg (27.0-33.0); Mean Platelet Volume 10.3 fl (7.4-10.4); Platelet Count 120 10x3/uL (150-450); RBC Distribution Width 16.2 % (11.5-14.5); Red Blood Cell (RBC) Count 2.45 10x6/uL (4.32-5.72)
[2021-12-29 04:16] LABS: ALT (SGPT) 9 U/L (8-55); AST (SGOT) 25 U/L (5-34); Albumin 3.4 g/dL (3.5-5.0); Alkaline Phosphatase 76 U/L (40-110); Anion Gap 12 mmol/L (10-20); BUN (Urea Nitrogen) 17 mg/dL (8.4-25.7); Bilirubin, Total 0.9 mg/dL (0.2-1.2); Calc. Creatinine Clearance 64 mL/min (70-130); Calcium 8.4 mg/dL (7.8-10.44); Carbon Dioxide 22 mmol/L (22-29); Chloride 109 mmol/L (98-107); Globulin 2.9 g/dL (2.4-3.5); Glucose 131 mg/dL (70-105); MDiff Complete? YES; Potassium 4.3 mmol/L (3.5-5.1); Protein, Total 6.3 g/dL (6.0-8.3); Sodium 139 mmol/L (136-145)
[2021-12-29 04:24] LABS: Band 5 % (5-11); Lymphocytes 18 % (21-51)
[2021-12-29 04:25] LABS: Neutrophil 60 % (42-75)
[2021-12-29 04:26] LABS: Monocytes 16 % (0-10)
[2021-12-29 04:27] LABS: Platelet Morphology Comment Appears Decreased; RBC Morphology Normal
[2021-12-29] MEDS: Albumin 25% 25 GM/100 ML BOT IVPB SCH (05:22)
[2021-12-29] MEDS: Levothyroxine Sodium 100 MCG TAB PO SCH (05:23)
[2021-12-29] MEDS: Thiamine 100 MG TAB PO SCH ×3 (05:23→21:43)
[2021-12-29] MEDS: Piperacillin/Tazobactam 3.375 GM in Sodium Chloride 0.9% 100 ML IVPB SCH ×3 (05:44→21:42)
[2021-12-29] MEDS: Furosemide 40 MG TAB PO SCH (06:12)
[2021-12-29] MEDS: Ferrous Sulfate 325 MG TAB PO SCH (11:04)
[2021-12-29] MEDS: Rifaximin 550 MG TAB PER TUBE SCH ×2 (11:04→21:42)
[2021-12-29] MEDS: Multivit, Therapeutic 1 TAB PO SCH (11:04)
[2021-12-29] MEDS: Spironolactone 25 MG TAB PO SCH (11:04)
[2021-12-29] MEDS: Folic Acid 1 MG TAB PO SCH (11:05)
[2021-12-29] MEDS: Pantoprazole 40 MG VIAL IVP SCH ×2 (11:05→21:42)
[2021-12-29] MEDS: Acetaminophen 650 MG Suppository PR PRN (21:41)
[2021-12-30 05:18] LABS: Hemoglobin 9.1 g/dL (13.5-17.5); Mean Corpuscular HGB CONC 32.5 g/dL (32.0-36.0); Mean Corpuscular Hemoglobin 29.5 pg (27.0-33.0); Mean Corpuscular Volume 90.9 fl (81.2-95.1); Mean Platelet Volume 10.5 fl (7.4-10.4); Platelet Count 139 10x3/uL (150-450); Red Blood Cell (RBC) Count 3.08 10x6/uL (4.32-5.72); White Blood Cell (WBC) Count 2.3 10x3/uL (3.5-10.5)
[2021-12-30 05:27] LABS: ALT (SGPT) 7 U/L (8-55); AST (SGOT) 27 U/L (5-34); Albumin 3.2 g/dL (3.5-5.0); Alkaline Phosphatase 91 U/L (40-110); Anion Gap 13 mmol/L (10-20); BUN (Urea Nitrogen) 17 mg/dL (8.4-25.7); Bilirubin, Total 0.8 mg/dL (0.2-1.2); Calc. Creatinine Clearance 70 mL/min (70-130); Calcium 8.2 mg/dL (7.8-10.44); Carbon Dioxide 21 mmol/L (22-29); Chloride 112 mmol/L (98-107); Globulin 3.1 g/dL (2.4-3.5); Glucose 137 mg/dL (70-105); Potassium 3.8 mmol/L (3.5-5.1); Protein, Total 6.3 g/dL (6.0-8.3); Sodium 142 mmol/L (136-145)
[2021-12-30 05:56] LABS: MDiff Complete? YES
[2021-12-30 05:58] LABS: Platelet Morphology Comment Appears Adequate; RBC Morphology Normal
[2021-12-30 06:03] LABS: Band 7 % (5-11); Eosinophils 1 % (0-10); Lymphocytes 29 % (21-51); Monocytes 16 % (0-10); Neutrophil 47 % (42-75)
[2021-12-30] MEDS: Piperacillin/Tazobactam 3.375 GM in Sodium Chloride 0.9% 100 ML IVPB SCH ×3 (06:07→21:49)
[2021-12-30] MEDS: Levothyroxine Sodium 100 MCG TAB PO SCH (06:07)
[2021-12-30] MEDS: Furosemide 40 MG TAB PO SCH (06:07)
[2021-12-30] MEDS: Thiamine 100 MG TAB PO SCH ×3 (06:07→21:49)
[2021-12-30] MEDS ORDERED: Lidocaine 1% PF 5 ML VIAL ONE (08:52)
[2021-12-30] MEDS: Pantoprazole 40 MG VIAL IVP SCH ×2 (09:46→21:49)
[2021-12-30] MEDS: Spironolactone 25 MG TAB PO SCH (09:47)
[2021-12-30] MEDS: Folic Acid 1 MG TAB PO SCH (09:47)
[2021-12-30] MEDS: Ferrous Sulfate 325 MG TAB PO SCH (09:47)
[2021-12-30] MEDS: Multivit, Therapeutic 1 TAB PO SCH (09:47)
[2021-12-30] MEDS: Rifaximin 550 MG TAB PER TUBE SCH ×2 (09:47→21:49)
[2021-12-31 04:38] LABS: Hemoglobin 8.5 g/dL (13.5-17.5); Mean Corpuscular HGB CONC 33.6 g/dL (32.0-36.0); Mean Corpuscular Hemoglobin 30.1 pg (27.0-33.0); Mean Corpuscular Volume 89.7 fl (81.2-95.1); Mean Platelet Volume 10.6 fl (7.4-10.4); Platelet Count 119 10x3/uL (150-450); RBC Distribution Width 15.7 % (11.5-14.5); Red Blood Cell (RBC) Count 2.82 10x6/uL (4.32-5.72); White Blood Cell (WBC) Count 2.5 10x3/uL (3.5-10.5)
[2021-12-31 04:49] LABS: MDiff Complete? YES
[2021-12-31 04:50] LABS: Anion Gap 13 mmol/L (10-20); BUN (Urea Nitrogen) 16 mg/dL (8.4-25.7); Calc. Creatinine Clearance 78 mL/min (70-130); Calcium 8.3 mg/dL (7.8-10.44); Carbon Dioxide 22 mmol/L (22-29); Chloride 107 mmol/L (98-107); Glucose 92 mg/dL (70-105); Platelet Morphology Comment Appears Decreased; Potassium 4.1 mmol/L (3.5-5.1); RBC Morphology Normal; Sodium 138 mmol/L (136-145)
[2021-12-31 04:57] LABS: Band 6 % (5-11); Eosinophils 1 % (0-10); Lymphocytes 33 % (21-51); Monocytes 13 % (0-10); Neutrophil 46 % (42-75)
[2021-12-31] MEDS: Furosemide 40 MG TAB PO SCH (06:56)
[2021-12-31] MEDS: Piperacillin/Tazobactam 3.375 GM in Sodium Chloride 0.9% 100 ML IVPB SCH ×3 (06:56→22:00)
[2021-12-31] MEDS: Levothyroxine Sodium 100 MCG TAB PO SCH (06:56)
[2021-12-31] MEDS: Thiamine 100 MG TAB PO SCH ×3 (07:22→22:30)
[2021-12-31] MEDS: Rifaximin 550 MG TAB PER TUBE SCH ×2 (09:07→20:06)
[2021-12-31] MEDS: Multivit, Therapeutic 1 TAB PO SCH (09:07)
[2021-12-31] MEDS: Folic Acid 1 MG TAB PO SCH (09:07)
[2021-12-31] MEDS: Spironolactone 25 MG TAB PO SCH (09:07)
[2021-12-31] MEDS: Ferrous Sulfate 325 MG TAB PO SCH (09:07)
[2021-12-31] MEDS: Pantoprazole 40 MG VIAL IVP SCH ×2 (09:08→20:06)
[2021-12-31] MEDS ORDERED: Lorazepam 2 MG/ML VIAL SLOW IVP SCH (15:29)
[2022-01-01 04:54] LABS: #Monocytes 0.3 10x3/uL (0.0-1.1); #Neutrophils 1.5 10x3/uL (1.5-8.4); %Basophils 0.8 % (0.0-2.0); %Eosinophils 0.8 % (0.0-6.0); %Lymphocytes 28.9 % (18.0-47.0); %Monocytes 10.2 % (0.0-10.0); %Neutrophils 58.9 % (40.0-75.0); Hemoglobin 8.7 g/dL (13.5-17.5); Mean Corpuscular Hemoglobin 28.6 pg (27.0-33.0); Mean Corpuscular Volume 92.4 fl (81.2-95.1); Mean Platelet Volume 11.1 fl (7.4-10.4); Platelet Count 114 10x3/uL (150-450); RBC Distribution Width 15.5 % (11.5-14.5); Red Blood Cell (RBC) Count 3.04 10x6/uL (4.32-5.72); White Blood Cell (WBC) Count 2.5 10x3/uL (3.5-10.5)
[2022-01-01 05:05] LABS: Anion Gap 16 mmol/L (10-20); BUN (Urea Nitrogen) 15 mg/dL (8.4-25.7); Calc. Creatinine Clearance 76 mL/min (70-130); Calcium 8.5 mg/dL (7.8-10.44); Carbon Dioxide 21 mmol/L (22-29); Chloride 105 mmol/L (98-107); Glucose 90 mg/dL (70-105); Potassium 4.1 mmol/L (3.5-5.1); Sodium 138 mmol/L (136-145)
[2022-01-01] MEDS: Piperacillin/Tazobactam 3.375 GM in Sodium Chloride 0.9% 100 ML IVPB SCH ×3 (06:36→22:25)
[2022-01-01] MEDS: Levothyroxine Sodium 100 MCG TAB PO SCH (06:36)
[2022-01-01] MEDS: Thiamine 100 MG TAB PO SCH (06:37)
[2022-01-01] MEDS: Spironolactone 25 MG TAB PO SCH (08:43)
[2022-01-01] MEDS: Pantoprazole 40 MG VIAL IVP SCH (08:43)
[2022-01-01] MEDS: Multivit, Therapeutic 1 TAB PO SCH (08:43)
[2022-01-01] MEDS: Furosemide 40 MG TAB PO SCH (08:43)
[2022-01-01] MEDS: Folic Acid 1 MG TAB PO SCH (08:43)
[2022-01-01] MEDS: Ferrous Sulfate 325 MG TAB PO SCH (08:43)
[2022-01-01] MEDS: Rifaximin 550 MG TAB PER TUBE SCH ×2 (08:44→20:39)
[2022-01-01] MEDS ORDERED: Ventolin HFA Inhaler 60 PUFF INHALER INH PRN (09:39)
[2022-01-01] MEDS: Ventolin HFA Inhaler 60 PUFF INHALER INH SCH (15:20)
[2022-01-01] MEDS: Lansoprazole 3 MG/ML ORAL SUSPENSION PO SCH (22:17)
[2022-01-02] MEDS: Acetaminophen 650 MG Suppository PR PRN (02:14)
[2022-01-02] MEDS: Ventolin HFA Inhaler 60 PUFF INHALER INH SCH ×4 (03:19→23:04)
[2022-01-02] MEDS: Levothyroxine Sodium 100 MCG TAB PO SCH (05:26)
[2022-01-02 06:41] LABS: Anion Gap 16 mmol/L (10-20); BUN (Urea Nitrogen) 14 mg/dL (8.4-25.7); Calc. Creatinine Clearance 70 mL/min (70-130); Calcium 8.3 mg/dL (7.8-10.44); Carbon Dioxide 21 mmol/L (22-29); Chloride 105 mmol/L (98-107); Glucose 102 mg/dL (70-105); Sodium 138 mmol/L (136-145)
[2022-01-02 06:57] LABS: Platelet Count 113 10x3/uL (150-450)
[2022-01-02 06:59] LABS: Hemoglobin 8.8 g/dL (13.5-17.5); Mean Corpuscular HGB CONC 33.1 g/dL (32.0-36.0); Mean Corpuscular Hemoglobin 29.1 pg (27.0-33.0); Mean Corpuscular Volume 88.1 fl (81.2-95.1); Mean Platelet Volume 11.6 fl (7.4-10.4); RBC Distribution Width 15.5 % (11.5-14.5); Red Blood Cell (RBC) Count 3.02 10x6/uL (4.32-5.72)
[2022-01-02 07:39] LABS: Band 3 % (5-11); Eosinophils 1 % (0-10); Lymphocytes 32 % (21-51); Monocytes 14 % (0-10)
[2022-01-02 07:40] LABS: Neutrophil 48 % (42-75)
[2022-01-02 07:41] LABS: Large Platelets SLIGHT
[2022-01-02 07:42] LABS: Platelet Morphology Comment Appears Decreased
[2022-01-02 07:43] LABS: MDiff Complete? YES; RBC Morphology Normal
[2022-01-02] MEDS: Ferrous Sulfate 325 MG TAB PO SCH (08:47)
[2022-01-02] MEDS: Furosemide 40 MG TAB PO SCH (08:47)
[2022-01-02] MEDS: Spironolactone 25 MG TAB PO SCH (08:47)
[2022-01-02] MEDS: Lansoprazole 3 MG/ML ORAL SUSPENSION PO SCH ×2 (08:48→23:30)
[2022-01-02] MEDS: Multivit, Therapeutic 1 TAB PO SCH (08:48)
[2022-01-02] MEDS: Thiamine 100 MG TAB PO SCH (08:48)
[2022-01-02] MEDS: Rifaximin 550 MG TAB PER TUBE SCH ×2 (08:48→20:58)
[2022-01-02] MEDS: Folic Acid 1 MG TAB PO SCH (08:48)
[2022-01-03 04:01] LABS: #Monocytes 0.3 10x3/uL (0.0-1.1); #Neutrophils 2.2 10x3/uL (1.5-8.4); %Basophils 0.3 % (0.0-2.0); %Eosinophils 0.3 % (0.0-6.0); %Lymphocytes 21.5 % (18.0-47.0); %Neutrophils 67.3 % (40.0-75.0); Hemoglobin 8.5 g/dL (13.5-17.5); Mean Corpuscular HGB CONC 31.6 g/dL (32.0-36.0); Mean Corpuscular Hemoglobin 28.5 pg (27.0-33.0); Mean Corpuscular Volume 90.3 fl (81.2-95.1); Platelet Count 121 10x3/uL (150-450); RBC Distribution Width 15.3 % (11.5-14.5); Red Blood Cell (RBC) Count 2.98 10x6/uL (4.32-5.72); White Blood Cell (WBC) Count 3.2 10x3/uL (3.5-10.5)
[2022-01-03 04:32] LABS: Anion Gap 16 mmol/L (10-20); BUN (Urea Nitrogen) 15 mg/dL (8.4-25.7); Calc. Creatinine Clearance 79 mL/min (70-130); Calcium 8.3 mg/dL (7.8-10.44); Carbon Dioxide 21 mmol/L (22-29); Chloride 106 mmol/L (98-107); Glucose 106 mg/dL (70-105); Potassium 3.5 mmol/L (3.5-5.1); Sodium 139 mmol/L (136-145)
[2022-01-03] MEDS ORDERED: Potassium Bicarbonate/Cit Ac 20 MEQ TAB PER TUBE SCH (05:00)
[2022-01-03] MEDS: Levothyroxine Sodium 100 MCG TAB PO SCH (06:30)
[2022-01-03] MEDS: Ventolin HFA Inhaler 60 PUFF INHALER INH SCH ×4 (07:00→22:50)
[2022-01-03] MEDS: Rifaximin 550 MG TAB PER TUBE SCH ×2 (09:08→21:26)
[2022-01-03] MEDS: Multivit, Therapeutic 1 TAB PO SCH (09:08)
[2022-01-03] MEDS: Spironolactone 25 MG TAB PO SCH (09:08)
[2022-01-03] MEDS: Ferrous Sulfate 325 MG TAB PO SCH (09:08)
[2022-01-03] MEDS: Furosemide 40 MG TAB PO SCH (09:08)
[2022-01-03] MEDS: Thiamine 100 MG TAB PO SCH (09:08)
[2022-01-03] MEDS: Folic Acid 1 MG TAB PO SCH (09:08)
[2022-01-03] MEDS: Lansoprazole 3 MG/ML ORAL SUSPENSION PO SCH ×2 (09:09→21:30)
[2022-01-03 10:43] LABS: Potassium 3.7 mmol/L (3.5-5.1)
[2022-01-03] MEDS ORDERED: Tamsulosin HCl 0.4 MG CAP PO SCH (15:30)
[2022-01-03] MEDS: Acetaminophen 650 MG Suppository PR PRN (21:59)
[2022-01-04 04:26] LABS: #Monocytes 0.3 10x3/uL (0.0-1.1); #Neutrophils 1.5 10x3/uL (1.5-8.4); %Basophils 0.4 % (0.0-2.0); %Lymphocytes 26.8 % (18.0-47.0); %Monocytes 11.2 % (0.0-10.0); %Neutrophils 60.8 % (40.0-75.0); Hemoglobin 8.1 g/dL (13.5-17.5); Mean Corpuscular HGB CONC 31.4 g/dL (32.0-36.0); Mean Corpuscular Hemoglobin 28.6 pg (27.0-33.0); Mean Corpuscular Volume 91.2 fl (81.2-95.1); Mean Platelet Volume 11.4 fl (7.4-10.4); Platelet Count 119 10x3/uL (150-450); RBC Distribution Width 15.2 % (11.5-14.5); Red Blood Cell (RBC) Count 2.83 10x6/uL (4.32-5.72); White Blood Cell (WBC) Count 2.5 10x3/uL (3.5-10.5)
[2022-01-04 04:56] LABS: Anion Gap 17 mmol/L (10-20); BUN (Urea Nitrogen) 19 mg/dL (8.4-25.7); Calc. Creatinine Clearance 65 mL/min (70-130); Calcium 8.3 mg/dL (7.8-10.44); Carbon Dioxide 23 mmol/L (22-29); Chloride 107 mmol/L (98-107); Glucose 116 mg/dL (70-105); Potassium 3.5 mmol/L (3.5-5.1); Sodium 143 mmol/L (136-145)
[2022-01-04] MEDS ORDERED: Potassium Bicarbonate/Cit Ac 20 MEQ TAB PER TUBE SCH (05:30)
[2022-01-04] MEDS: Furosemide 40 MG TAB PO SCH ×2 (06:56→08:26)
[2022-01-04] MEDS: Levothyroxine Sodium 100 MCG TAB PO SCH (06:56)
[2022-01-04] MEDS: Ventolin HFA Inhaler 60 PUFF INHALER INH SCH ×3 (07:09→23:00)
[2022-01-04] MEDS: Ferrous Sulfate 325 MG TAB PO SCH (08:25)
[2022-01-04] MEDS: Folic Acid 1 MG TAB PO SCH (08:25)
[2022-01-04] MEDS: Multivit, Therapeutic 1 TAB PO SCH (08:25)
[2022-01-04] MEDS: Tamsulosin HCl 0.4 MG CAP PO SCH (08:26)
[2022-01-04] MEDS: Thiamine 100 MG TAB PO SCH (08:26)
[2022-01-04] MEDS: Lansoprazole 3 MG/ML ORAL SUSPENSION PO SCH ×2 (08:26→20:52)
[2022-01-04] MEDS: Spironolactone 25 MG TAB PO SCH (08:26)
[2022-01-04] MEDS: Rifaximin 550 MG TAB PER TUBE SCH ×3 (09:00→21:30)
[2022-01-04 10:29] LABS: Potassium 3.9 mmol/L (3.5-5.1)
[2022-01-04] MEDS: Acetaminophen 650 MG Suppository PR PRN (20:53)
[2022-01-05 04:40] LABS: Hemoglobin 8.2 g/dL (13.5-17.5); Mean Corpuscular HGB CONC 31.8 g/dL (32.0-36.0); Mean Corpuscular Volume 91.2 fl (81.2-95.1); Mean Platelet Volume 11.7 fl (7.4-10.4); Platelet Count 126 10x3/uL (150-450); RBC Distribution Width 15.5 % (11.5-14.5); Red Blood Cell (RBC) Count 2.83 10x6/uL (4.32-5.72); White Blood Cell (WBC) Count 2.5 10x3/uL (3.5-10.5)
[2022-01-05 04:44] LABS: MDiff Complete? YES; Manual Diff?? YES
[2022-01-05 04:53] LABS: Anion Gap 17 mmol/L (10-20); BUN (Urea Nitrogen) 25 mg/dL (8.4-25.7); Calc. Creatinine Clearance 53 mL/min (70-130); Calcium 8.7 mg/dL (7.8-10.44); Carbon Dioxide 24 mmol/L (22-29); Chloride 107 mmol/L (98-107); Glucose 117 mg/dL (70-105); Potassium 3.8 mmol/L (3.5-5.1); Sodium 144 mmol/L (136-145)
[2022-01-05 05:52] LABS: Band 2 % (5-11); Lymphocytes 28 % (21-51); Monocytes 10 % (0-10); Neutrophil 60 % (42-75)
[2022-01-05 05:53] LABS: Platelet Morphology Comment Appears Decreased
[2022-01-05 05:55] LABS: Anisocytosis SLIGHT = 6-15 cells (100X) (0-5/hpf); Macrocytosis SLIGHT = 6-15 cells (100X) (0-5/hpf); Microcytosis SLIGHT = 6-15 cells (100X) (0-5/hpf)
[2022-01-05] MEDS: Levothyroxine Sodium 100 MCG TAB PO SCH (06:10)
[2022-01-05] MEDS: Ventolin HFA Inhaler 60 PUFF INHALER INH SCH ×3 (06:49→22:20)
[2022-01-05] MEDS: Spironolactone 25 MG TAB PO SCH (10:03)
[2022-01-05] MEDS: Tamsulosin HCl 0.4 MG CAP PO SCH (10:04)
[2022-01-05] MEDS: Multivit, Therapeutic 1 TAB PO SCH (10:04)
[2022-01-05] MEDS: Ferrous Sulfate 325 MG TAB PO SCH (10:04)
[2022-01-05] MEDS: Folic Acid 1 MG TAB PO SCH (10:04)
[2022-01-05] MEDS: Thiamine 100 MG TAB PO SCH (10:04)
[2022-01-05] MEDS: Lansoprazole 3 MG/ML ORAL SUSPENSION PO SCH ×2 (10:10→21:14)
[2022-01-05] MEDS: Rifaximin 550 MG TAB PER TUBE SCH (10:10)
[2022-01-05] MEDS ORDERED: Lactated Ringer's 1,000 ML IV SCH (10:15)
[2022-01-05] MEDS ORDERED: Albumin 25% 25 GM/100 ML BOT IVPB SCH (15:00)
[2022-01-05] MEDS: Acetaminophen 650 MG Suppository PR PRN (16:23)
[2022-01-05] MEDS: cefTRIAXone\\ROCEPHIN 1 GM in Sodium Chloride 0.9% 100 ML IVPB SCH (17:55)
[2022-01-06 05:35] LABS: Hemoglobin 8.9 g/dL (13.5-17.5); Mean Corpuscular HGB CONC 32.4 g/dL (32.0-36.0); Mean Corpuscular Hemoglobin 28.8 pg (27.0-33.0); Mean Platelet Volume 11.1 fl (7.4-10.4); Platelet Count 132 10x3/uL (150-450); RBC Distribution Width 15.6 % (11.5-14.5); Red Blood Cell (RBC) Count 3.09 10x6/uL (4.32-5.72); White Blood Cell (WBC) Count 3.5 10x3/uL (3.5-10.5)
[2022-01-06 05:49] LABS: Anion Gap 18 mmol/L (10-20); BUN (Urea Nitrogen) 25 mg/dL (8.4-25.7); Calc. Creatinine Clearance 58 mL/min (70-130); Calcium 8.8 mg/dL (7.8-10.44); Carbon Dioxide 24 mmol/L (22-29); Chloride 108 mmol/L (98-107); Glucose 105 mg/dL (70-105); Potassium 3.4 mmol/L (3.5-5.1); Sodium 147 mmol/L (136-145)
[2022-01-06] MEDS ORDERED: Potassium Bicarbonate/Cit Ac 20 MEQ TAB PO SCH ×2 (06:15)
[2022-01-06] MEDS ORDERED: Potassium Chloride 20 MEQ TAB PO SCH (06:15)
[2022-01-06] MEDS: Levothyroxine Sodium 100 MCG TAB PO SCH ×2 (06:55→07:02)
[2022-01-06 07:13] LABS: MDiff Complete? YES
[2022-01-06] MEDS: Ventolin HFA Inhaler 60 PUFF INHALER INH SCH ×3 (07:15→22:20)
[2022-01-06 07:19] LABS: Band 4 % (5-11); Lymphocytes 16 % (21-51); Metamyelocyte 2 % (0-0); Monocytes 11 % (0-10); Neutrophil 67 % (42-75)
[2022-01-06 07:20] LABS: Platelet Morphology Comment Appears Decreased
[2022-01-06 07:21] LABS: Anisocytosis SLIGHT = 6-15 cells (100X) (0-5/hpf)
[2022-01-06] MEDS: Furosemide 40 MG TAB PO SCH (19:49)
[2022-01-06] MEDS: Ferrous Sulfate 325 MG TAB PO SCH (19:49)
[2022-01-06] MEDS: Folic Acid 1 MG TAB PO SCH (19:49)
[2022-01-06] MEDS: Spironolactone 25 MG TAB PO SCH (19:49)
[2022-01-06] MEDS: Lansoprazole 3 MG/ML ORAL SUSPENSION PO SCH ×3 (19:50→22:13)
[2022-01-06] MEDS: Rifaximin 550 MG TAB PER TUBE SCH ×3 (19:51→22:13)
[2022-01-06] MEDS: Tamsulosin HCl 0.4 MG CAP PO SCH (19:51)
[2022-01-06] MEDS: Thiamine 100 MG TAB PO SCH (19:51)
[2022-01-06] MEDS: cefTRIAXone\\ROCEPHIN 1 GM in Sodium Chloride 0.9% 100 ML IVPB SCH (19:51)
[2022-01-06] MEDS: Multivit, Therapeutic 1 TAB PO SCH (19:51)
[2022-01-06] MEDS: Acetaminophen 650 MG Suppository PR PRN (21:22)
[2022-01-07 05:06] LABS: BUN (Urea Nitrogen) 23 mg/dL (8.4-25.7); Calc. Creatinine Clearance 68 mL/min (70-130); Carbon Dioxide 24 mmol/L (22-29); Chloride 111 mmol/L (98-107); Potassium 3.3 mmol/L (3.5-5.1); Sodium 148 mmol/L (136-145)
[2022-01-07 05:07] LABS: AST (SGOT) 31 U/L (5-34); Albumin 3.1 g/dL (3.5-5.0); Alkaline Phosphatase 101 U/L (40-110); Bilirubin, Total 0.8 mg/dL (0.2-1.2); Calcium 8.4 mg/dL (7.8-10.44); Globulin 3.4 g/dL (2.4-3.5); Glucose 106 mg/dL (70-105); Protein, Total 6.5 g/dL (6.0-8.3)
[2022-01-07 05:08] LABS: ALT (SGPT) 8 U/L (8-55); Anion Gap 16 mmol/L (10-20)
[2022-01-07 06:07] LABS: Band 1 % (5-11); Lymphocytes 25 % (21-51); Monocytes 15 % (0-10); Neutrophil 57 % (42-75); Reactive Lymphocytes 1 % (0-10)
[2022-01-07 06:09] LABS: Hemoglobin 8.5 g/dL (13.5-17.5); Mean Corpuscular HGB CONC 32.1 g/dL (32.0-36.0); Mean Corpuscular Hemoglobin 28.7 pg (27.0-33.0); Mean Corpuscular Volume 89.5 fl (81.2-95.1); Platelet Count 123 10x3/uL (150-450); RBC Distribution Width 15.8 % (11.5-14.5); Red Blood Cell (RBC) Count 2.96 10x6/uL (4.32-5.72)
[2022-01-07 06:10] LABS: Anisocytosis SLIGHT = 6-15 cells (100X) (0-5/hpf); Hypochromia SLIGHT = 6-15 cells (100X) (0-5/hpf); MDiff Complete? YES; Mean Platelet Volume 11.3 fl (7.4-10.4)
[2022-01-07 06:11] LABS: Platelet Morphology Comment Appears Decreased
[2022-01-07] MEDS ORDERED: Potassium Bicarbonate/Cit Ac 20 MEQ TAB PER TUBE SCH ×2 (06:30→11:30)
[2022-01-07] MEDS: Levothyroxine Sodium 100 MCG TAB PO SCH ×2 (06:31→11:19)
[2022-01-07] MEDS: Ventolin HFA Inhaler 60 PUFF INHALER INH SCH ×2 (06:59→14:54)
[2022-01-07] MEDS: Multivit, Therapeutic 1 TAB PO SCH ×2 (11:15→11:18)
[2022-01-07] MEDS: Ferrous Sulfate 325 MG TAB PO SCH ×2 (11:15→11:18)
[2022-01-07] MEDS: Lansoprazole 3 MG/ML ORAL SUSPENSION PO SCH ×3 (11:15→21:35)
[2022-01-07] MEDS: Thiamine 100 MG TAB PO SCH ×2 (11:15→11:18)
[2022-01-07] MEDS: Spironolactone 25 MG TAB PO SCH ×2 (11:15→11:17)
[2022-01-07] MEDS: Folic Acid 1 MG TAB PO SCH ×2 (11:15→11:18)
[2022-01-07] MEDS: Furosemide 40 MG TAB PO SCH ×2 (11:15→11:18)
[2022-01-07] MEDS: Rifaximin 550 MG TAB PER TUBE SCH ×3 (11:15→21:35)
[2022-01-07] MEDS: Tamsulosin HCl 0.4 MG CAP PO SCH ×2 (11:15→11:19)
[2022-01-07] MEDS ORDERED: Dextrose 5 %-0.45 % NaCl 1,000 ML IV SCH (14:45)
[2022-01-07] MEDS: Acetaminophen 650 MG Suppository PR PRN (18:33)
[2022-01-07] MEDS: cefTRIAXone\\ROCEPHIN 1 GM in Sodium Chloride 0.9% 100 ML IVPB SCH (18:36)
[2022-01-08] MEDS: Ventolin HFA Inhaler 60 PUFF INHALER INH SCH ×4 (01:33→23:12)
[2022-01-08 05:49] LABS: BUN (Urea Nitrogen) 22 mg/dL (8.4-25.7); Calc. Creatinine Clearance 71 mL/min (70-130); Carbon Dioxide 22 mmol/L (22-29); Chloride 113 mmol/L (98-107); Potassium 3.6 mmol/L (3.5-5.1); Sodium 150 mmol/L (136-145)
[2022-01-08 05:50] LABS: AST (SGOT) 41 U/L (5-34); Albumin 3.4 g/dL (3.5-5.0); Alkaline Phosphatase 118 U/L (40-110); Calcium 8.8 mg/dL (7.8-10.44); Globulin 3.9 g/dL (2.4-3.5); Glucose 103 mg/dL (70-105); Protein, Total 7.3 g/dL (6.0-8.3)
[2022-01-08 05:51] LABS: ALT (SGPT) 9 U/L (8-55); Anion Gap 19 mmol/L (10-20)
[2022-01-08 06:06] LABS: Hemoglobin 9.3 g/dL (13.5-17.5); Red Blood Cell (RBC) Count 3.23 10x6/uL (4.32-5.72); White Blood Cell (WBC) Count 4.3 10x3/uL (3.5-10.5)
[2022-01-08 06:07] LABS: MDiff Complete? YES; Mean Corpuscular HGB CONC 30.9 g/dL (32.0-36.0); Mean Corpuscular Hemoglobin 28.8 pg (27.0-33.0); Mean Corpuscular Volume 93.2 fl (81.2-95.1); Mean Platelet Volume 11.5 fl (7.4-10.4); Platelet Count 139 10x3/uL (150-450); Platelet Morphology Comment Appears Decreased; RBC Distribution Width 15.7 % (11.5-14.5)
[2022-01-08 06:08] LABS: Anisocytosis SLIGHT = 6-15 cells (100X) (0-5/hpf)
[2022-01-08 06:10] LABS: Hypochromia SLIGHT = 6-15 cells (100X) (0-5/hpf)
[2022-01-08 06:15] LABS: Band 4 % (5-11); Lymphocytes 15 % (21-51); Metamyelocyte 1 % (0-0); Monocytes 9 % (0-10); Neutrophil 71 % (42-75)
[2022-01-08] MEDS: Furosemide 40 MG TAB PO SCH (09:00)
[2022-01-08] MEDS: Tamsulosin HCl 0.4 MG CAP PO SCH (09:00)
[2022-01-08] MEDS: Spironolactone 25 MG TAB PO SCH (09:00)
[2022-01-08] MEDS: Thiamine 100 MG TAB PO SCH (09:00)
[2022-01-08] MEDS: Multivit, Therapeutic 1 TAB PO SCH (09:00)
[2022-01-08] MEDS: Folic Acid 1 MG TAB PO SCH (09:00)
[2022-01-08] MEDS: Rifaximin 550 MG TAB PER TUBE SCH ×2 (09:00→22:09)
[2022-01-08] MEDS: Lansoprazole 3 MG/ML ORAL SUSPENSION PO SCH ×2 (09:00→22:08)
[2022-01-08] MEDS: Ferrous Sulfate 325 MG TAB PO SCH (09:00)
[2022-01-08] MEDS: Dextrose 5% in Water 1,000 ML IV SCH (15:20)
[2022-01-08] MEDS: Ampicillin/Sulbactam 1.5 GM in Sodium Chloride 0.9% 100 ML IVPB SCH ×2 (15:20→22:07)
[2022-01-08] MEDS: Acetaminophen 650 MG Suppository PR PRN (18:16)
[2022-01-08] MEDS ORDERED: Morphine 4 MG/ML VIAL SLOW IVP PRN (18:49)
[2022-01-09] MEDS: Ampicillin/Sulbactam 1.5 GM in Sodium Chloride 0.9% 100 ML IVPB SCH ×4 (03:07→21:02)
[2022-01-09] MEDS: Dextrose 5% in Water 1,000 ML IV SCH (03:08)
[2022-01-09 05:10] LABS: Carbon Dioxide 21 mmol/L (22-29); Chloride 115 mmol/L (98-107); Potassium 3.9 mmol/L (3.5-5.1); Sodium 150 mmol/L (136-145)
[2022-01-09 05:11] LABS: Anion Gap 18 mmol/L (10-20); BUN (Urea Nitrogen) 20 mg/dL (8.4-25.7); Calc. Creatinine Clearance 76 mL/min (70-130); Glucose 105 mg/dL (70-105)
[2022-01-09 05:12] LABS: ALT (SGPT) 9 U/L (8-55); AST (SGOT) 42 U/L (5-34); Albumin 3.3 g/dL (3.5-5.0); Alkaline Phosphatase 114 U/L (40-110); Bilirubin, Total 1.2 mg/dL (0.2-1.2); Calcium 8.8 mg/dL (7.8-10.44); Protein, Total 7.3 g/dL (6.0-8.3)
[2022-01-09] MEDS: Levothyroxine Sodium 100 MCG TAB PO SCH (05:40)
[2022-01-09 05:51] LABS: MDiff Complete? YES; Platelet Morphology Comment Appears Decreased
[2022-01-09 05:54] LABS: Anisocytosis SLIGHT = 6-15 cells (100X) (0-5/hpf); Hypochromia SLIGHT = 6-15 cells (100X) (0-5/hpf); Schistocytes SLIGHT = 2-5 cells (100X) (0-1/hpf)
[2022-01-09 05:57] LABS: Band 2 % (5-11); Lymphocytes 22 % (21-51); Metamyelocyte 1 % (0-0); Monocytes 10 % (0-10); Neutrophil 65 % (42-75)
[2022-01-09 06:35] LABS: Hemoglobin 9.5 g/dL (13.5-17.5); Red Blood Cell (RBC) Count 3.33 10x6/uL (4.32-5.72)
[2022-01-09 06:36] LABS: Mean Corpuscular HGB CONC 30.7 g/dL (32.0-36.0); Mean Corpuscular Hemoglobin 28.5 pg (27.0-33.0); Mean Corpuscular Volume 92.8 fl (81.2-95.1); Mean Platelet Volume 11.9 fl (7.4-10.4); Platelet Count 139 10x3/uL (150-450); RBC Distribution Width 15.9 % (11.5-14.5)
[2022-01-09] MEDS: Furosemide 40 MG TAB PO SCH (06:38)
[2022-01-09] MEDS: Ventolin HFA Inhaler 60 PUFF INHALER INH SCH ×3 (07:11→23:31)
[2022-01-09] MEDS: Spironolactone 25 MG TAB PO SCH ×2 (10:32→14:01)
[2022-01-09] MEDS: Folic Acid 1 MG TAB PO SCH ×2 (10:33→14:01)
[2022-01-09] MEDS: Multivit, Therapeutic 1 TAB PO SCH ×2 (10:33→14:02)
[2022-01-09] MEDS: Ferrous Sulfate 325 MG TAB PO SCH ×2 (10:33→14:01)
[2022-01-09] MEDS: Thiamine 100 MG TAB PO SCH ×2 (10:35→14:02)
[2022-01-09] MEDS: Tamsulosin HCl 0.4 MG CAP PO SCH ×2 (10:35→14:02)
[2022-01-09] MEDS: Rifaximin 550 MG TAB PER TUBE SCH ×3 (10:36→22:35)
[2022-01-09] MEDS: Lansoprazole 3 MG/ML ORAL SUSPENSION PO SCH ×2 (14:02→22:35)
[2022-01-10] MEDS: Ampicillin/Sulbactam 1.5 GM in Sodium Chloride 0.9% 100 ML IVPB SCH ×4 (03:44→22:09)
[2022-01-10] MEDS: Dextrose 5% in Water 1,000 ML IV SCH ×3 (03:45→22:10)
[2022-01-10 05:25] LABS: Carbon Dioxide 24 mmol/L (22-29); Chloride 114 mmol/L (98-107); Hemoglobin 9.3 g/dL (13.5-17.5); Mean Corpuscular Hemoglobin 28.7 pg (27.0-33.0); Mean Corpuscular Volume 89.8 fl (81.2-95.1); Platelet Count 101 10x3/uL (150-450); Potassium 3.2 mmol/L (3.5-5.1); RBC Distribution Width 15.8 % (11.5-14.5); Red Blood Cell (RBC) Count 3.24 10x6/uL (4.32-5.72); Sodium 151 mmol/L (136-145); White Blood Cell (WBC) Count 3.5 10x3/uL (3.5-10.5)
[2022-01-10 05:26] LABS: BUN (Urea Nitrogen) 18 mg/dL (8.4-25.7); MDiff Complete? YES; Mean Platelet Volume 11.3 fl (7.4-10.4)
[2022-01-10 05:27] LABS: Bilirubin, Total 1.2 mg/dL (0.2-1.2); Calc. Creatinine Clearance 90 mL/min (70-130); Calcium 8.3 mg/dL (7.8-10.44); Globulin 3.7 g/dL (2.4-3.5); Glucose 98 mg/dL (70-105); Protein, Total 6.7 g/dL (6.0-8.3)
[2022-01-10 05:28] LABS: ALT (SGPT) 9 U/L (8-55); AST (SGOT) 37 U/L (5-34); Alkaline Phosphatase 108 U/L (40-110)
[2022-01-10 05:31] LABS: Anion Gap 16 mmol/L (10-20); Band 6 % (5-11); Lymphocytes 25 % (21-51); Monocytes 6 % (0-10); Neutrophil 63 % (42-75)
[2022-01-10 05:32] LABS: Platelet Morphology Comment Appears Decreased; RBC Morphology Normal
[2022-01-10] MEDS ORDERED: Potassium Bicarbonate/Cit Ac 20 MEQ TAB PER TUBE SCH (06:00)
[2022-01-10] MEDS: Furosemide 40 MG TAB PO SCH (06:05)
[2022-01-10] MEDS: Levothyroxine Sodium 100 MCG TAB PO SCH (06:06)
[2022-01-10] MEDS: Ventolin HFA Inhaler 60 PUFF INHALER INH SCH ×3 (07:57→22:02)
[2022-01-10] MEDS: Potassium Chloride 20 MEQ in Premix Bag 1 BAG IVPB SCH ×2 (08:35→10:43)
[2022-01-10] MEDS: Spironolactone 25 MG TAB PO SCH (10:26)
[2022-01-10] MEDS: Ferrous Sulfate 325 MG TAB PO SCH (10:26)
[2022-01-10] MEDS: Lansoprazole 3 MG/ML ORAL SUSPENSION PO SCH ×2 (10:27→22:10)
[2022-01-10] MEDS: Multivit, Therapeutic 1 TAB PO SCH (10:27)
[2022-01-10] MEDS: Folic Acid 1 MG TAB PO SCH (10:27)
[2022-01-10] MEDS: Tamsulosin HCl 0.4 MG CAP PO SCH (10:28)
[2022-01-10] MEDS: Thiamine 100 MG TAB PO SCH (10:28)
[2022-01-10] MEDS: Rifaximin 550 MG TAB PER TUBE SCH ×2 (10:28→22:11)
[2022-01-10] MEDS ORDERED: Dextrose 5% in Water 1,000 ML ONE ×2 (15:22→15:23)
[2022-01-11] MEDS: Ampicillin/Sulbactam 1.5 GM in Sodium Chloride 0.9% 100 ML IVPB SCH ×5 (03:47→23:04)
[2022-01-11 05:26] LABS: Red Blood Cell (RBC) Count 2.98 10x6/uL (4.32-5.72); White Blood Cell (WBC) Count 2.7 10x3/uL (3.5-10.5)
[2022-01-11 05:27] LABS: Hemoglobin 8.4 g/dL (13.5-17.5); Mean Corpuscular HGB CONC 30.5 g/dL (32.0-36.0); Mean Corpuscular Hemoglobin 28.2 pg (27.0-33.0); Mean Corpuscular Volume 92.3 fl (81.2-95.1); Mean Platelet Volume 11.7 fl (7.4-10.4); Platelet Count 94 10x3/uL (150-450); RBC Distribution Width 15.9 % (11.5-14.5)
[2022-01-11 05:28] LABS: MDiff Complete? YES
[2022-01-11 06:26] LABS: Band 3 % (5-11); Lymphocytes 26 % (21-51); Metamyelocyte 1 % (0-0); Monocytes 8 % (0-10); Neutrophil 62 % (42-75); Nucleated RBC 1 % (0)
[2022-01-11 06:27] LABS: Platelet Morphology Comment Appears Decreased
[2022-01-11 06:28] LABS: RBC Morphology Normal
[2022-01-11 06:33] LABS: Sodium 152 mmol/L (136-145)
[2022-01-11 06:34] LABS: Carbon Dioxide 24 mmol/L (22-29); Chloride 117 mmol/L (98-107); Potassium 3.3 mmol/L (3.5-5.1)
[2022-01-11] MEDS: Ventolin HFA Inhaler 60 PUFF INHALER INH SCH ×3 (06:36→23:00)
[2022-01-11 06:37] LABS: Anion Gap 14 mmol/L (10-20); BUN (Urea Nitrogen) 17 mg/dL (8.4-25.7); Calc. Creatinine Clearance 101 mL/min (70-130)
[2022-01-11 06:38] LABS: Bilirubin, Total 1.3 mg/dL (0.2-1.2); Calcium 8.5 mg/dL (7.8-10.44); Globulin 3.5 g/dL (2.4-3.5); Glucose 94 mg/dL (70-105); Protein, Total 6.5 g/dL (6.0-8.3)
[2022-01-11 06:39] LABS: AST (SGOT) 35 U/L (5-34); Alkaline Phosphatase 106 U/L (40-110)
[2022-01-11 06:40] LABS: ALT (SGPT) 9 U/L (8-55)
[2022-01-11] MEDS: Levothyroxine Sodium 100 MCG TAB PO SCH (06:47)
[2022-01-11] MEDS: Tamsulosin HCl 0.4 MG CAP PO SCH (10:00)
[2022-01-11] MEDS: Spironolactone 25 MG TAB PO SCH (10:00)
[2022-01-11] MEDS: Thiamine 100 MG TAB PO SCH (10:00)
[2022-01-11] MEDS: Multivit, Therapeutic 1 TAB PO SCH (10:00)
[2022-01-11] MEDS: Ferrous Sulfate 325 MG TAB PO SCH (10:00)
[2022-01-11] MEDS: Rifaximin 550 MG TAB PER TUBE SCH ×2 (10:00→23:27)
[2022-01-11] MEDS: Folic Acid 1 MG TAB PO SCH (10:00)
[2022-01-11] MEDS: Potassium Chloride 20 MEQ in Premix Bag 1 BAG IVPB SCH (17:16)
[2022-01-11] MEDS: Dextrose 5% in Water 1,000 ML IV SCH (17:18)
[2022-01-11 21:59] LABS: Potassium 3.5 mmol/L (3.5-5.1)
[2022-01-11] MEDS ORDERED: Potassium Chloride 20 MEQ in Premix Bag 1 BAG IVPB SCH (23:30)
[2022-01-12] MEDS ORDERED: Potassium Chloride 20 MEQ in Premix Bag 1 BAG IVPB SCH
[2022-01-12] MEDS: Ampicillin/Sulbactam 1.5 GM in Sodium Chloride 0.9% 100 ML IVPB SCH ×4 (04:00→20:50)
[2022-01-12] MEDS: Levothyroxine Sodium 100 MCG TAB PO SCH (06:09)
[2022-01-12] MEDS: Ventolin HFA Inhaler 60 PUFF INHALER INH SCH ×3 (07:27→22:20)
[2022-01-12] MEDS: Thiamine 100 MG TAB PO SCH (10:00)
[2022-01-12] MEDS: Ferrous Sulfate 325 MG TAB PO SCH (10:00)
[2022-01-12] MEDS: Multivit, Therapeutic 1 TAB PO SCH (10:00)
[2022-01-12] MEDS: Tamsulosin HCl 0.4 MG CAP PO SCH (10:00)
[2022-01-12] MEDS: Spironolactone 25 MG TAB PO SCH (10:00)
[2022-01-12] MEDS: Folic Acid 1 MG TAB PO SCH (10:00)
[2022-01-12] MEDS: Rifaximin 550 MG TAB PER TUBE SCH ×2 (10:00→21:04)
[2022-01-12] MEDS: Dextrose 5% in Water 1,000 ML IV SCH ×2 (11:40)
[2022-01-13] MEDS: Dextrose 5% in Water 1,000 ML IV SCH ×4 (03:04→23:08)
[2022-01-13] MEDS: Ampicillin/Sulbactam 1.5 GM in Sodium Chloride 0.9% 100 ML IVPB SCH ×4 (03:10→21:23)
[2022-01-13] MEDS: Levothyroxine Sodium 100 MCG TAB PO SCH (05:31)
[2022-01-13] MEDS: Ventolin HFA Inhaler 60 PUFF INHALER INH SCH ×3 (06:41→22:15)
[2022-01-13] MEDS: Spironolactone 25 MG TAB PO SCH (17:36)
[2022-01-13] MEDS: Ferrous Sulfate 325 MG TAB PO SCH (17:37)
[2022-01-13] MEDS: Tamsulosin HCl 0.4 MG CAP PO SCH (17:37)
[2022-01-13] MEDS: Multivit, Therapeutic 1 TAB PO SCH (17:37)
[2022-01-13] MEDS: Rifaximin 550 MG TAB PER TUBE SCH ×2 (17:37→21:25)
[2022-01-13] MEDS: Folic Acid 1 MG TAB PO SCH (17:37)
[2022-01-13] MEDS: Thiamine 100 MG TAB PO SCH (17:37)
[2022-01-13] MEDS: Potassium Chloride 20 MEQ in Premix Bag 1 BAG IVPB SCH (19:10)
[2022-01-14] MEDS: Ampicillin/Sulbactam 1.5 GM in Sodium Chloride 0.9% 100 ML IVPB SCH (02:58)
[2022-01-14] MEDS: Dextrose 5% in Water 1,000 ML IV SCH (05:33)
[2022-01-14] MEDS: Levothyroxine Sodium 100 MCG TAB PO SCH (05:33)
[2022-01-14] MEDS: Ventolin HFA Inhaler 60 PUFF INHALER INH SCH (07:13)
[2022-01-14] MEDS: Ferrous Sulfate 325 MG TAB PO SCH (09:58)
[2022-01-14] MEDS: Folic Acid 1 MG TAB PO SCH (09:58)
[2022-01-14] MEDS: Thiamine 100 MG TAB PO SCH (09:59)
[2022-01-14] MEDS: Tamsulosin HCl 0.4 MG CAP PO SCH (09:59)
[2022-01-14] MEDS: Multivit, Therapeutic 1 TAB PO SCH (09:59)
[2022-01-14] MEDS: Rifaximin 550 MG TAB PER TUBE SCH (10:10)
[2022-01-14 13:32] LABS: Sodium 144 mmol/L (136-145)
[2022-01-14 13:33] LABS: BUN (Urea Nitrogen) 10 mg/dL (8.4-25.7); Calc. Creatinine Clearance 109 mL/min (70-130); Calcium 8.2 mg/dL (7.8-10.44); Carbon Dioxide 22 mmol/L (22-29); Chloride 112 mmol/L (98-107); Estimated GFR 104; Glucose 119 mg/dL (70-105)
[2022-01-14 13:43] LABS: Anion Gap 13 mmol/L (10-20)
[2022-01-14] MEDS ORDERED: Morphine 10 MG/0.5 ML ORAL SYRINGE SL PRN (13:55)
[2022-01-14] MEDS ORDERED: Lorazepam 2 MG/ML VIAL SLOW IVP PRN (14:00)
[2022-01-14] MEDS ORDERED: Diazepam 2.5 MG GEL PR PRN (14:05)
[2022-01-14] MEDS: Potassium Chloride 20 MEQ in Premix Bag 1 BAG IVPB SCH ×2 (17:04→21:10)
[2022-01-14] MEDS: Scopolamine 1.5 mg/72 hour Patch TD SCH (17:04)
[2022-01-14] MEDS: Spironolactone 25 MG TAB PO SCH (17:16)
[2022-01-14 21:08] LABS: Potassium 3.2 mmol/L (3.5-5.1)
[2022-01-15] MEDS: Levothyroxine Sodium 100 MCG TAB PO SCH (05:44)
[2022-01-15] MEDS: Tamsulosin HCl 0.4 MG CAP PO SCH (08:58)
[2022-01-15] MEDS: Potassium Chloride 20 MEQ in Premix Bag 1 BAG IVPB SCH ×2 (17:15→20:28)
[2022-01-16] MEDS: Levothyroxine Sodium 100 MCG TAB PO SCH (06:34)
[2022-01-16] MEDS: Tamsulosin HCl 0.4 MG CAP PO SCH (08:59)
[2022-01-17] MEDS: Guaifenesin DM 100-10/5 ML UDCUP PO PRN (02:28)
[2022-01-17] MEDS: Levothyroxine Sodium 100 MCG TAB PO SCH (06:30)
[2022-01-17] MEDS: Tamsulosin HCl 0.4 MG CAP PO SCH (09:00)
[2022-01-17] MEDS: Scopolamine 1.5 mg/72 hour Patch TD SCH (14:59)
[2022-01-17] MEDS ORDERED: Acetaminophen 650 MG Suppository PR SCH (23:45)
[2022-01-17] MEDS ORDERED: Lactated Ringer's 500 ML IV SCH (23:59)
[2022-01-18] MEDS: Lactated Ringer's 500 ML IV SCH ×2 (00:10→02:21)
[2022-01-18] MEDS ORDERED: Lactated Ringer's 500 ML IV ONE (02:30)
[2022-01-18] MEDS: Levothyroxine Sodium 100 MCG TAB PO SCH (05:41)
[2022-01-18] MEDS: Tamsulosin HCl 0.4 MG CAP PO SCH (08:25)
[2022-01-18] MEDS: Guaifenesin DM 100-10/5 ML UDCUP PO PRN (22:47)
[2022-01-19] MEDS: Levothyroxine Sodium 100 MCG TAB PO SCH (05:49)
[2022-01-19] MEDS: Tamsulosin HCl 0.4 MG CAP PO SCH (08:32)
[2022-01-20] MEDS: Levothyroxine Sodium 100 MCG TAB PO SCH (07:16)
[2022-01-20] MEDS: Tamsulosin HCl 0.4 MG CAP PO SCH (08:52)
[2022-01-20] MEDS: Scopolamine 1.5 mg/72 hour Patch TD SCH (14:39)
[2022-01-21] MEDS: Levothyroxine Sodium 100 MCG TAB PO SCH (05:35)
[2022-01-21 08:51] VITALS: BP 122/78; TEMP 97.9
[2022-01-21] MEDS: Tamsulosin HCl 0.4 MG CAP PO SCH (09:42)
== END 2022-01-21 11:20 | disposition hospice, inpatient (51) | DRG 682 ==
LOC: CSHERS 09:10 → CSHTELE 17:40 → OBSVTOIN 17:41 → CSHTELE 12-18 08:03
PROVIDERS: ADMIT Family Medicine; ATTEND Family Medicine
PROC: 0DH67UZ Insertion of Feeding Device into Stomach, Via Natural or Artificial Opening (ICD-10-PCS; 2021-12-24)
PROC: 3E0G76Z Introduction of Nutritional Substance into Upper GI, Via Natural or Artificial Opening (ICD-10-PCS; 2021-12-24)
PROC: 0W9G3ZZ Drainage of Peritoneal Cavity, Percutaneous Approach (ICD-10-PCS; 2021-12-28)
PROC: 8E0ZXY6 Isolation (ICD-10-PCS; principal; 2021-12-30)
DX: N17.9 Acute kidney failure, unspecified (principal); U07.1 COVID-19; J69.0 Pneumonitis due to inhalation of food and vomit; E87.1 Hypo-osmolality and hyponatremia; K76.6 Portal hypertension; E46 Unspecified protein-calorie malnutrition; E87.0 Hyperosmolality and hypernatremia; E51.2 Wernicke's encephalopathy; Z51.5 Encounter for palliative care; Z66 Do not resuscitate; E03.9 Hypothyroidism, unspecified; K21.9 Gastro-esophageal reflux disease without esophagitis; E86.0 Dehydration; D69.6 Thrombocytopenia, unspecified; K70.31 Alcoholic cirrhosis of liver with ascites; R33.9 Retention of urine, unspecified; F10.10 Alcohol abuse, uncomplicated; F03.90 Unspecified dementia, unspecified severity, without behavioral disturbance, psychotic disturbance, mood disturbance, and anxiety; I10 Essential (primary) hypertension; R45.1 Restlessness and agitation; I45.81 Long QT syndrome; H40.9 Unspecified glaucoma; I49.3 Ventricular premature depolarization; E87.6 Hypokalemia; D50.9 Iron deficiency anemia, unspecified; Z63.5 Disruption of family by separation and divorce; Z79.899 Other long term (current) drug therapy; Z79.890 Hormone replacement therapy; Z68.23 Body mass index [BMI] 23.0-23.9, adult; Z78.1 Physical restraint status
CPT/HCPCS: 36415; 36416; 36600; 49083; 51701; 70450; 70551; 71045; 74018; 76770; 80048; 80053; 80074; 80306; 80307; 81001; 81003; 81015; 82105; 82140; 82150; 82390; 82550; 82728; 82805; 82945; 83516; 83550; 83615; 83690; 83735; 83880; 84100; 84145; 84443; 84484; 85025; 85610; 85652; 85730; 86015; 86038; 86140; 86225; 86706; 86708; 87040; 87070; 87086; 87205; 89051; 93005; 93010; 94640; 94664; 94760; 95819; 95957; 96360; C9113; J0295; J0696; J1630; J2060; J2405; J2543; J3411; J3475; J3480; J3486; J3490; J7042; J7070; J7120; J7620; P9047; U0003; U0005